=== PATIENT | male | born 1970 | race American Indian/Alaskan Native ===

== ENCOUNTER 2019-04-29 19:42 | Emergency (ER) | payer MEDICAID, OTHER ==
[2019-04-29] MEDS ORDERED: Ketorolac 60 MG/2 ML SDV IM ONE (21:08)
--- NOTE | 2019-04-29 21:10 | EDM.PDOC ---
ED HPI GENERAL MEDICAL PROBLEM - General Chief Complaint: ENT Problem Stated Complaint: TOOTHACHE Time Seen by Provider: 04/29/19 21:04 Source of Information: Reports: Patient, Family, RN Notes Reviewed History Limitations: Reports: No Limitations - History of Present Illness INITIAL COMMENTS - FREE TEXT/NARRATIVE: 49-year-old gentleman presents emergency department the complaint of dental pain , he notices that his heart has been beating fast and he was very sweaty today this is really developed over the last 24 hours he has been dealing with the poor dentition for some time. Denies any fevers Right Lower Tooth/Teeth Pain Score (Numeric/FACES): 10 - Related Data Allergies Allergy/AdvReac Type Severity Reaction Status Date / Time ciprofloxacin [From Cipro] Allergy Hives Verified 04/29/19 20:23 ciprofloxacin HCl Allergy Hives Verified 04/29/19 20:23 [From Cipro] Home Meds: Home Meds Insulin Aspart [NovoLOG] 30 units SQ TIDAC 11/17/13 [History] Insulin Detemir [Levemir] 80 units SQ BID 11/17/13 [History] Amitriptyline [Elavil] 25 mg PO BEDTIME 04/29/19 [History] Venlafaxine [Effexor XR] 300 mg PO DAILY 04/29/19 [History] cloNIDine HCl [Catapres] 0.3 mg PO BEDTIME 04/29/19 [History] Past Medical History HEENT History: Reports: Impaired Vision, Other (See Below) Other HEENT History: dental caries Cardiovascular History: Reports: Hypertension Respiratory History: Reports: Asthma Other Genitourinary History: kidney disease Musculoskeletal History: Reports: Fracture Psychiatric History: Reports: Anxiety, Depression Endocrine/Metabolic History: Reports: Diabetes, Type II, Obesity/BMI 30+ - Infectious Disease History Infectious Disease History: Reports: Chicken Pox, Shingles - Past Surgical History Musculoskeletal Surgical History: Reports: Other (See Below) Other Musculoskeletal Surgeries/Procedures:: ankle surgery Social & Family History - Tobacco Use Smoking Status *Q: Current Every Day Smoker Years of Tobacco use: 35 Packs/Tins Daily: 0.5 - Caffeine Use Caffeine Use: Reports: Coffee - Recreational Drug Use Recreational Drug Use: Yes Drug Use in Last 12 Months: No Recreational Drug Last Use: 2017 ED ROS ENT - Review of Systems Review Of Systems: See Below Constitutional: Reports: Diaphoresis. Denies: Fever, Chills HEENT: Reports: Dental Pain Respiratory: Reports: No Symptoms Cardiovascular: Reports: No Symptoms GI/Abdominal: Reports: No Symptoms ED EXAM, ENT - Physical Exam Exam: See Below Exam Limited By: No Limitations General Appearance: Alert, WD/WN, No Apparent Distress Eye Exam: Bilateral Eye: Normal Inspection Ears: Normal External Exam, Normal Canal, Hearing Grossly Normal, Normal TMs Nose: Normal Inspection Mouth/Throat: Normal Inspection, Normal Gums, Normal Lips, Normal Oropharynx, Other (Dental caries tooth #30) Head: Atraumatic, Normocephalic Neck: Normal Inspection, Supple, Non-Tender, Full Range of Motion Respiratory/Chest: No Respiratory Distress, Lungs Clear, Normal Breath Sounds, No Accessory Muscle Use, Chest Non-Tender Cardiovascular: Regular Rate, Rhythm, No Murmur GI/Abdominal: Soft, Non-Tender Course - Vital Signs Last Recorded V/S: Last Vital Signs Temp 99.6 F 04/29/19 20:28 Pulse 133 H 04/29/19 22:19 Resp 12 04/29/19 22:19 BP 114/76 04/29/19 22:19 Pulse Ox 96 04/29/19 22:19 - Orders/Labs/Meds Orders: Active Orders 24 hr Category Date Time Status EKG Documentation Completion [RC] ASDIRECTED Care 04/29/19 22:05 Active Peripheral IV Care [RC] . DIRECTED Care 04/29/19 22:15 Active Vital Signs [RC] Q1H Care 04/29/19 21:07 Active CULTURE BLOOD [BC] Urgent Lab 04/29/19 21:16 Received CULTURE BLOOD [BC] Urgent Lab 04/29/19 21:20 Received Sodium Chloride 0.9% [Saline Flush] Med 04/29/19 22:15 Active 10 ml FLUSH ASDIRECTED PRN Blood Culture x2 Reflex Set [OM.PC] Urgent Oth 04/29/19 21:07 Ordered Peripheral IV Insertion Adult [OM.PC] Urgent Oth 04/29/19 22:13 Ordered EKG 12 Lead [EK] Stat Ther 04/29/19 22:05 Ordered Medication Orders Sodium Chloride (Saline Flush) 10 ml FLUSH ASDIRECTED PRN PRN Reason: Keep Vein Open Last Admin: 04/29/19 22:20 Dose: 10 ml Labs: Laboratory Tests 04/29/19 04/29/19 04/29/19 Range/Units 21:16 21:16 21:16 WBC 15.0 H (4.5-11.0) K/uL RBC 5.56 (4.30-5.90) M/uL Hgb 16.6 H (12.0-15.0) g/dL Hct 49.5 (40.0-54.0) % MCV 89 (80-98) fL MCH 30 (27-31) pg MCHC 34 (32-36) % Plt Count 346 (150-400) K/uL Neut % (Auto) 65 (36-66) % Lymph % (Auto) 22 L (24-44) % [place] % (Auto) 8 H (2-6) % Eos % (Auto) 4 (2-4) % Baso % (Auto) 1 (0-1) % Sodium 131 L (140-148) mmol/L Potassium 5.0 (3.6-5.2) mmol/L Chloride 93 L (100-108) mmol/L Carbon Dioxide 27 (21-32) mmol/L Anion Gap 16.0 H (5.0-14.0) mmol/L BUN 23 H (7-18) mg/dL Creatinine 1.4 H (0.8-1.3) mg/dL Est Cr Clr Drug Dosing 58.86 mL/min Estimated GFR (MDRD) 54 L (>60) Glucose 560 H* (74-106) mg/dL Lactic Acid 2.3 H (0.4-2.0) mmol/L Calcium 9.7 (8.5-10.1) mg/dL Total Bilirubin 0.2 (0.2-1.0) mg/dL AST 5 L (15-37) U/L ALT 30 (12-78) U/L Alkaline Phosphatase 192 H (46-116) U/L C-Reactive Protein 0.33 H (0.0-0.3) mg/dL Total Protein 8.6 H (6.4-8.2) g/dL Albumin 3.4 (3.4-5.0) g/dL Globulin 5.2 H (2.3-3.5) g/dL Albumin/Globulin Ratio 0.7 L (1.2-2.2) Procalcitonin ng/mL Urine Color (YELLOW) Urine Appearance (CLEAR) Urine pH (5.0-8.0) Ur Specific [place] (1.008-1.030) Urine Protein (NEGATIVE) mg/dL Urine Glucose (UA) (NEGATIVE) mg/dL Urine Ketones (NEGATIVE) mg/dL Urine Occult Blood (NEGATIVE) Urine Nitrite (NEGATIVE) Urine Bilirubin (NEGATIVE) Urine Urobilinogen (0.2-1.0) EU/dL Ur Leukocyte Esterase (NEGATIVE) Urine RBC (0-5) Urine WBC (0-5) Ur Epithelial Cells Amorphous Sediment Urine Bacteria Urine Mucus Urine Opiates Screen (NEGATIVE) Ur Oxycodone Screen (NEGATIVE) Urine Methadone Screen (NEGATIVE) Ur Propoxyphene Screen (NEGATIVE) Ur Barbiturates Screen (NEGATIVE) Ur Tricyclics Screen (NEGATIVE) Ur Phencyclidine Scrn (NEGATIVE) Ur Amphetamine Screen (NEGATIVE) U Methamphetamines Scrn (NEGATIVE) Urine MDMA Screen (NEGATIVE) U Benzodiazepines Scrn (NEGATIVE) U Cocaine Metab Screen (NEGATIVE) U Marijuana (THC) Screen (NEGATIVE) 04/29/19 04/29/19 04/29/19 Range/Units 21:16 21:44 21:44 WBC (4.5-11.0) K/uL RBC (4.30-5.90) M/uL Hgb (12.0-15.0) g/dL Hct (40.0-54.0) % MCV (80-98) fL MCH (27-31) pg MCHC (32-36) % Plt Count (150-400) K/uL Neut % (Auto) (36-66) % Lymph % (Auto) (24-44) % [place] % (Auto) (2-6) % Eos % (Auto) (2-4) % Baso % (Auto) (0-1) % Sodium (140-148) mmol/L Potassium (3.6-5.2) mmol/L Chloride (100-108) mmol/L Carbon Dioxide (21-32) mmol/L Anion Gap (5.0-14.0) mmol/L BUN (7-18) mg/dL Creatinine (0.8-1.3) mg/dL Est Cr Clr Drug Dosing mL/min Estimated GFR (MDRD) (>60) Glucose (74-106) mg/dL Lactic Acid (0.4-2.0) mmol/L Calcium (8.5-10.1) mg/dL Total Bilirubin (0.2-1.0) mg/dL AST (15-37) U/L ALT (12-78) U/L Alkaline Phosphatase (46-116) U/L C-Reactive Protein (0.0-0.3) mg/dL Total Protein (6.4-8.2) g/dL Albumin (3.4-5.0) g/dL Globulin (2.3-3.5) g/dL Albumin/Globulin Ratio (1.2-2.2) Procalcitonin 0.05 ng/mL Urine Color Yellow (YELLOW) Urine Appearance Clear (CLEAR) Urine pH 5.5 (5.0-8.0) Ur Specific [place] 1.010 (1.008-1.030) Urine Protein Negative (NEGATIVE) mg/dL Urine Glucose (UA) 500 H (NEGATIVE) mg/dL Urine Ketones Negative (NEGATIVE) mg/dL Urine Occult Blood Negative (NEGATIVE) Urine Nitrite Negative (NEGATIVE) Urine Bilirubin Negative (NEGATIVE) Urine Urobilinogen 0.2 (0.2-1.0) EU/dL Ur Leukocyte Esterase Negative (NEGATIVE) Urine RBC Not seen (0-5) Urine WBC Not seen (0-5) Ur Epithelial Cells Not seen Amorphous Sediment Few Urine Bacteria Not seen Urine Mucus Not seen Urine Opiates Screen Negative (NEGATIVE) Ur Oxycodone Screen Negative (NEGATIVE) Urine Methadone Screen Negative (NEGATIVE) Ur Propoxyphene Screen Negative (NEGATIVE) Ur Barbiturates Screen Negative (NEGATIVE) Ur Tricyclics Screen Presumptive positive H (NEGATIVE) Ur Phencyclidine Scrn Negative (NEGATIVE) Ur Amphetamine Screen Negative (NEGATIVE) U Methamphetamines Scrn Negative (NEGATIVE) Urine MDMA Screen Negative (NEGATIVE) U Benzodiazepines Scrn Negative (NEGATIVE) U Cocaine Metab Screen Negative (NEGATIVE) U Marijuana (THC) Screen Negative (NEGATIVE) Meds: Medications Generic Name Dose Route Start Last Admin Trade Name Freq PRN Reason Stop Dose Admin Sodium Chloride 10 ml 04/29/19 22:15 04/29/19 22:20 Saline Flush FLUSH 10 ml ASDIRECTED PRN Administration Keep Vein Open Discontinued Medications Generic Name Dose Route Start Last Admin Trade Name Freq PRN Reason Stop Dose Admin Fentanyl 50 mcg 04/29/19 23:12 04/29/19 23:17 Sublimaze IVPUSH 04/29/19 23:13 50 mcg ONETIME ONE Administration Clindamycin Phosphate 900 mg/ 106 mls @ 200 mls/hr 04/29/19 22:15 04/29/19 22 :42 Sodium Chloride IV 04/29/19 22:46 200 mls/hr ONETIME ONE Administration Lactated Ringer's 1,000 mls @ 999 mls/hr 04/29/19 22:13 04/29/19 22:19 Ringers, Lactated IV 04/29/19 23:13 999 mls/hr BOLUS ONE Administration Insulin Glargine 80 units 04/29/19 22:21 04/29/19 22:54 Lantus Solostar SUBCUT 04/29/19 22:22 80 units NOW STA Administration Insulin Human Lispro 0 unit 04/29/19 22:20 04/29/19 22:53 Humalog SUBCUT 04/29/19 22:21 30 units ONETIME ONE Administration Ketorolac Tromethamine 60 mg 04/29/19 21:08 04/29/19 21:22 Toradol IM 04/29/19 21:09 60 mg ONETIME ONE Administration Departure - Departure Time of Disposition: 23:29 Disposition: Home, Self-Care 01 Condition: Fair Clinical Impression: Dental abscess - Discharge Information Referrals: PCP,None [Primary Care Provider] - Forms: ED Department Discharge Additional Instructions: Take full course of antibiotics, use ibuprofen for baseline pain control use Percocet for breakthrough pain, please followup with your dentist as soon as possible, please call return to the emergency department with worsening of symptoms. - My Orders Last 24 Hours: My Active Orders 04/29/19 21:07 Vital Signs [RC] Q1H Blood Culture x2 Reflex Set [OM.PC] Urgent 04/29/19 21:16 CULTURE BLOOD [BC] Urgent 04/29/19 21:20 CULTURE BLOOD [BC] Urgent 04/29/19 22:05 EKG Documentation Completion [RC] ASDIRECTED EKG 12 Lead [EK] Stat 04/29/19 22:13 Peripheral IV Insertion Adult [OM.PC] Urgent 04/29/19 22:15 Peripheral IV Care [RC] . DIRECTED Sodium Chloride 0.9% [Saline Flush] 10 ml FLUSH ASDIRECTED PRN - Assessment/Plan Last 24 Hours: My Active Orders 04/29/19 21:07 Vital Signs [RC] Q1H Blood Culture x2 Reflex Set [OM.PC] Urgent 04/29/19 21:16 CULTURE BLOOD [BC] Urgent 04/29/19 21:20 CULTURE BLOOD [BC] Urgent 04/29/19 22:05 EKG Documentation Completion [RC] ASDIRECTED EKG 12 Lead [EK] Stat 04/29/19 22:13 Peripheral IV Insertion Adult [OM.PC] Urgent 04/29/19 22:15 Peripheral IV Care [RC] . DIRECTED Sodium Chloride 0.9% [Saline Flush] 10 ml FLUSH ASDIRECTED PRN Plan: Assessment Acuity = acute Site and laterality = dental abscess tooth #30 complicated patient with known history of diabetes mellitus type 2 Etiology = dental caries Manifestations = feverish, tachycardic Location of injury = Home Lab values = WBC elevated 15.0 consistent leukocytosis, sodium low at 131 consistent hyponatremia creatinine elevated 1.4 consistent with acute renal failure stage G3 a glucose elevated 560 consistent with hyperglycemia lactic acid elevated 2.3 consistent lactic acidosis CRP slightly elevated 0.33 pro calcitonin slightly elevated 0.05, urinalysis unremarkable urine drug screen also negative Plan He had good response to 900 mg clindamycin with 1 L fluids plans discharge home clindamycin 300 mg 4 times daily x 7 days and accommodation Percocet 5/325 1 tab p.o. 3 times daily as needed total #10 he will follow-up with dentistry this week This note was dictated using [employer] voice recognition software please call with any questions on syntax or grammar.
[2019-04-29] MEDS ORDERED: Lactated Ringers 1,000 ML IV ONE (22:13)
[2019-04-29] MEDS ORDERED: Sodium Chloride 0.9% 10 ML Syringe FLUSH PRN (22:15)
[2019-04-29] MEDS ORDERED: Clindamycin Phosphate 900 MG in Sodium Chloride 0.9% 100 ML IV ONE (22:15)
[2019-04-29] MEDS ORDERED: Insulin Lispro 100 Units/ML 3 ML Vial SUBCUT ONE (22:20)
[2019-04-29] MEDS ORDERED: Insulin Glargine,Human Rec. Analog 100 Units/ML 3 ML Pen SUBCUT STA (22:21)
[2019-04-29] MEDS ORDERED: fentaNYL 100 MCG/2 ML SDV IVPUSH ONE (23:12)
[2019-04-29 23:34] VITALS: BP 122/66; PULSE 121
== END 2019-04-29 23:38 | disposition home or self-care (01) ==
LOC: JP.ED 19:42
DX: K04.7 Periapical abscess without sinus (principal); K02.9 Dental caries, unspecified; I10 Essential (primary) hypertension; J45.909 Unspecified asthma, uncomplicated; E11.9 Type 2 diabetes mellitus without complications; F17.210 Nicotine dependence, cigarettes, uncomplicated; E66.9 Obesity, unspecified; Z68.41 Body mass index [BMI] 40.0-44.9, adult; Z79.4 Long term (current) use of insulin; Z79.899 Other long term (current) drug therapy; Z88.1 Allergy status to other antibiotic agents
CPT/HCPCS: 36415; 80053; 80305; 81001; 83605; 84145; 85025; 86140; 87040; 93005; 96365; 96372; 96375; 99284; J1815; J1885; J3010; J3490; J7030; J7120

== ENCOUNTER 2019-05-03 13:54 | Emergency (ER) | payer OTHER ==
[2019-05-03 14:06] VITALS: BP 131/86; PULSE 96
[2019-05-03] MEDS ORDERED: Ketorolac 60 MG/2 ML SDV IM ONE (15:08)
[2019-05-03] MEDS ORDERED: Acetaminophen/oxyCODONE 325-5 MG Tab PO ONE (15:08)
--- NOTE | 2019-05-03 15:09 | EDM.PDOC ---
ED HPI GENERAL MEDICAL PROBLEM - General Chief Complaint: ENT Problem Stated Complaint: TOOTH PAIN BOTTOM RIGHT Time Seen by Provider: 05/03/19 15:09 Source of Information: Reports: Patient History Limitations: Reports: No Limitations - History of Present Illness INITIAL COMMENTS - FREE TEXT/NARRATIVE: pt arrived with persistent pain in the broken tooth on the rt. He was seen earler but because of the holiday he was not able to get into the dentist. Onset: Gradual Duration: Day(s): Location: Reports: Face Associated Symptoms: Reports: No Other Symptoms Right Tooth/Teeth Pain Score (Numeric/FACES): 10 - Related Data Allergies Allergy/AdvReac Type Severity Reaction Status Date / Time ciprofloxacin [From Cipro] Allergy Hives Verified 05/03/19 14:08 ciprofloxacin HCl Allergy Hives Verified 05/03/19 14:08 [From Cipro] Home Meds: Home Meds Insulin Aspart [NovoLOG] 30 units SQ TIDAC 11/17/13 [History] Insulin Detemir [Levemir] 80 units SQ BID 11/17/13 [History] Amitriptyline [Elavil] 25 mg PO BEDTIME 04/29/19 [History] Venlafaxine [Effexor XR] 300 mg PO DAILY 04/29/19 [History] cloNIDine HCl [Catapres] 0.3 mg PO BEDTIME 04/29/19 [History] Clindamycin HCl 600 mg PO QID 05/03/19 [History] Past Medical History HEENT History: Reports: Impaired Vision, Other (See Below) Other HEENT History: dental caries Cardiovascular History: Reports: Hypertension Respiratory History: Reports: Asthma Other Genitourinary History: kidney disease Musculoskeletal History: Reports: Fracture Psychiatric History: Reports: Anxiety, Depression Endocrine/Metabolic History: Reports: Diabetes, Type II, Obesity/BMI 30+ - Infectious Disease History Infectious Disease History: Reports: Chicken Pox, Shingles - Past Surgical History Musculoskeletal Surgical History: Reports: Other (See Below) Other Musculoskeletal Surgeries/Procedures:: ankle surgery Social & Family History - Tobacco Use Smoking Status *Q: Light Tobacco Smoker Years of Tobacco use: 35 Packs/Tins Daily: 0.5 - Caffeine Use Caffeine Use: Reports: Coffee Other Caffeine Use: 4-5 cups of coffee per day - Recreational Drug Use Recreational Drug Use: No ED ROS ENT - Review of Systems Review Of Systems: See Below Constitutional: Reports: No Symptoms HEENT: Reports: Dental Pain Respiratory: Reports: No Symptoms Cardiovascular: Reports: No Symptoms Endocrine: Reports: No Symptoms GI/Abdominal: Reports: No Symptoms : Reports: No Symptoms Musculoskeletal: Reports: No Symptoms Skin: Reports: No Symptoms Neurological: Reports: No Symptoms ED EXAM, ENT - Physical Exam Exam: See Below Text/Narrative:: Pt arrived with dental pain on the rt. He was seen earlier and he was not able to be seen at the dental clinic in [place] because of the holiday. He plans to go Monday and sit to be seen. Exam Limited By: No Limitations General Appearance: Alert, Moderate Distress Mouth/Throat: Other (pt has a broken tooth on the rt. He has no increased swelling. ) Head: Atraumatic Neck: Normal Inspection Respiratory/Chest: No Respiratory Distress Cardiovascular: Tachycardia, Other ( rate is 90. ) Course - Vital Signs Last Recorded V/S: Last Vital Signs Temp 35.8 C 05/03/19 14:07 Pulse 96 05/03/19 14:07 Resp 16 05/03/19 14:07 BP 131/86 05/03/19 14:07 Pulse Ox 97 05/03/19 14:07 - Orders/Labs/Meds Meds: Medications Discontinued Medications Generic Name Dose Route Start Last Admin Trade Name Sari PRN Reason Stop Dose Admin Ketorolac Tromethamine 60 mg 05/03/19 15:08 Toradol IM 05/03/19 15:09 ONETIME ONE Oxycodone/Acetaminophen 1 tab 05/03/19 15:08 05/03/19 15:16 Percocet 325-5 Mg PO 05/03/19 15:09 1 tab ONETIME ONE Administration Departure - Departure Time of Disposition: 15:10 Disposition: Home, Self-Care 01 Condition: Fair Clinical Impression: Broken tooth - Discharge Information Instructions: Tooth Injuries, [id number] Referrals: PCP,None [Primary Care Provider] - Forms: ED Department Discharge Care Plan Goals: continue clindomycin, percocet 5/325 q6h prn for pain , torodol 10mg qid for pain. Go to [facility] and sit to see a Dentist On Monday.
== END 2019-05-03 15:25 | disposition home or self-care (01) ==
LOC: JP.ED 13:54
DX: K03.81 Cracked tooth (principal); E11.9 Type 2 diabetes mellitus without complications; E66.9 Obesity, unspecified; F41.9 Anxiety disorder, unspecified; F32.9 Major depressive disorder, single episode, unspecified; I10 Essential (primary) hypertension; F17.210 Nicotine dependence, cigarettes, uncomplicated; J45.909 Unspecified asthma, uncomplicated; Z88.1 Allergy status to other antibiotic agents; Z79.4 Long term (current) use of insulin; Z79.899 Other long term (current) drug therapy; Z68.41 Body mass index [BMI] 40.0-44.9, adult
CPT/HCPCS: 96372; 99283; A9270; J1885

== ENCOUNTER 2019-05-26 23:16 | Emergency (ER) | payer OTHER ==
[2019-05-26 23:30] VITALS: BP 162/107; PULSE 108
[2019-05-26] MEDS ORDERED: Acetaminophen/HYDROcodone 325-5 MG Tab PO ONE (23:53)
[2019-05-26] MEDS ORDERED: Ketorolac 60 MG/2 ML SDV IM ONE (23:53)
--- NOTE | 2019-05-26 23:56 | EDM.PDOC ---
ED HPI GENERAL MEDICAL PROBLEM - General Chief Complaint: ENT Problem Stated Complaint: TOOTHACHE Time Seen by Provider: 05/26/19 23:54 Source of Information: Reports: Patient History Limitations: Reports: No Limitations - History of Present Illness INITIAL COMMENTS - FREE TEXT/NARRATIVE: pt has a rt lower molar that was infected in Apr. He was given antibiotics and it got better so he never went to the dentist. He is now having sig pain in the same tooth. He gets his medical care at [place]. Onset: Gradual, Other (worst today. ) Duration: Hour(s): Location: Reports: Face Associated Symptoms: Reports: No Other Symptoms Right Lower Tooth/Teeth Pain Score (Numeric/FACES): 10 - Related Data Allergies Allergy/AdvReac Type Severity Reaction Status Date / Time ciprofloxacin HCl Allergy Hives Verified 05/26/19 23:28 [From Cipro] Home Meds: Home Meds Insulin Aspart [NovoLOG] 30 units SQ TIDAC 11/17/13 [History] Insulin Detemir [Levemir] 80 units SQ BID 11/17/13 [History] Amitriptyline [Elavil] 25 mg PO BEDTIME 04/29/19 [History] Venlafaxine [Effexor XR] 300 mg PO DAILY 04/29/19 [History] cloNIDine HCl [Catapres] 0.3 mg PO BEDTIME 04/29/19 [History] Past Medical History HEENT History: Reports: Impaired Vision, Other (See Below) Other HEENT History: dental caries Cardiovascular History: Reports: Hypertension Respiratory History: Reports: Asthma Other Genitourinary History: kidney disease Musculoskeletal History: Reports: Fracture Psychiatric History: Reports: Anxiety, Depression Endocrine/Metabolic History: Reports: Diabetes, Type II, Obesity/BMI 30+ - Infectious Disease History Infectious Disease History: Reports: Chicken Pox, Shingles - Past Surgical History Musculoskeletal Surgical History: Reports: Other (See Below) Other Musculoskeletal Surgeries/Procedures:: ankle surgery Social & Family History - Tobacco Use Smoking Status *Q: Current Every Day Smoker Years of Tobacco use: 2 Packs/Tins Daily: 35 - Caffeine Use Caffeine Use: Reports: Coffee, Soda Other Caffeine Use: 4-5 cups of coffee per day - Recreational Drug Use Recreational Drug Use: No ED ROS ENT - Review of Systems Review Of Systems: See Below Constitutional: Reports: No Symptoms HEENT: Reports: Dental Pain Respiratory: Reports: No Symptoms Cardiovascular: Reports: No Symptoms Endocrine: Reports: No Symptoms GI/Abdominal: Reports: No Symptoms : Reports: No Symptoms Musculoskeletal: Reports: No Symptoms Skin: Reports: No Symptoms ED EXAM, ENT - Physical Exam Exam: See Below Text/Narrative:: pt arrived with pain in a rt lower molar. He had the same tooth flare up in Apr. He took antibiotics and it got better. It has flared again. Exam Limited By: No Limitations General Appearance: Alert, Anxious, Mild Distress Ears: Normal TMs Nose: Normal Inspection Mouth/Throat: Dental Pain, Other (pt has a painful rt lower molar. He is very tender to press on the tooth. ) Head: Atraumatic Neck: Normal Inspection Respiratory/Chest: No Respiratory Distress Course - Vital Signs Last Recorded V/S: Last Vital Signs Temp 36.2 C 05/26/19 23:28 Pulse 108 H 05/26/19 23:28 Resp 18 05/26/19 23:28 BP 162/107 H 05/26/19 23:28 Pulse Ox 99 05/26/19 23:28 - Orders/Labs/Meds Meds: Medications Discontinued Medications Generic Name Dose Route Start Last Admin Trade Name Freq PRN Reason Stop Dose Admin Hydrocodone Bitart/Acetaminophen 1 tab 05/26/19 23:53 [place] 325-5 Mg PO 05/26/19 23:54 ONETIME ONE Ketorolac Tromethamine 60 mg 05/26/19 23:53 Toradol IM 05/26/19 23:54 ONETIME ONE Departure - Departure Time of Disposition: 23:56 Disposition: Home, Self-Care 01 Condition: Fair Clinical Impression: Infected tooth - Discharge Information Referrals: PCP,None [Primary Care Provider] - Forms: ED Department Discharge Care Plan Goals: Go to [place] and sit to see the dentist, amoxicillin 500mg tid for 10 days, norco 5/325 q6h prn for pain #8, motrin 800 mg bid for pain. Sepsis Event Note - Evaluation Sepsis Screening Result: No Definite Risk - Focused Exam Vital Signs: Vital Signs Temp Pulse Resp BP Pulse Ox 05/26/19 23:28 36.2 C 108 H 18 162/107 H 99 Date Exam was Performed: 05/27/19 Time Exam was Performed: 00:01
== END 2019-05-27 00:11 | disposition home or self-care (01) ==
LOC: JP.ED 23:16
DX: K04.7 Periapical abscess without sinus (principal); E11.9 Type 2 diabetes mellitus without complications; E66.9 Obesity, unspecified; I10 Essential (primary) hypertension; J45.909 Unspecified asthma, uncomplicated; F32.9 Major depressive disorder, single episode, unspecified; F17.210 Nicotine dependence, cigarettes, uncomplicated; Z88.1 Allergy status to other antibiotic agents; Z68.42 Body mass index [BMI] 45.0-49.9, adult; Z79.899 Other long term (current) drug therapy; Z79.4 Long term (current) use of insulin
CPT/HCPCS: 96372; 99283; A9270; J1885

== ENCOUNTER 2019-05-31 18:44 | Emergency (ER) | payer MEDICAID, OTHER ==
[2019-05-31 19:03] VITALS: BP 115/77; PULSE 97
--- NOTE | 2019-05-31 19:15 | EDM.PDOC ---
ED HPI GENERAL MEDICAL PROBLEM - General Chief Complaint: ENT Problem Stated Complaint: TOOTHACHE Time Seen by Provider: 05/31/19 19:00 Source of Information: Reports: Patient, Family History Limitations: Reports: No Limitations - History of Present Illness INITIAL COMMENTS - FREE TEXT/NARRATIVE: 49-year-old male with ongoing dental pain for the past month. He has an appointment at the dentist on Monday. He was given 8 hydrocodone last week, has been taking 2 a day along with ibuprofen and is still taking his antibiotic. No significant swelling or fever. He has not seen a dentist in years. Onset: Gradual Duration: Week(s): (Several weeks) - Related Data Allergies Allergy/AdvReac Type Severity Reaction Status Date / Time ciprofloxacin HCl Allergy Hives Verified 05/31/19 18:54 [From Cipro] Home Meds: Home Meds Insulin Aspart [NovoLOG] 30 units SQ TIDAC 11/17/13 [History] Insulin Detemir [Levemir] 80 units SQ BID 11/17/13 [History] Amitriptyline [Elavil] 25 mg PO BEDTIME 04/29/19 [History] Venlafaxine [Effexor XR] 300 mg PO DAILY 04/29/19 [History] cloNIDine HCl [Catapres] 0.3 mg PO BEDTIME 04/29/19 [History] Amoxicillin 1 tab PO QID 05/31/19 [History] Hydrocodone/Acetaminophen [Hydrocodon-Acetaminophen 5-325] 1 tab PO Q4HR PRN [History] Pregabalin [Lyrica] 1 tab PO DAILY 05/31/19 [History] Past Medical History HEENT History: Reports: Impaired Vision, Other (See Below) Other HEENT History: dental caries Cardiovascular History: Reports: Hypertension Respiratory History: Reports: Asthma Other Genitourinary History: kidney disease Musculoskeletal History: Reports: Fracture Psychiatric History: Reports: Anxiety, Depression Endocrine/Metabolic History: Reports: Diabetes, Type II, Obesity/BMI 30+ - Infectious Disease History Infectious Disease History: Reports: Chicken Pox, Shingles - Past Surgical History Musculoskeletal Surgical History: Reports: Other (See Below) Other Musculoskeletal Surgeries/Procedures:: ankle surgery Social & Family History - Tobacco Use Smoking Status *Q: Current Every Day Smoker Years of Tobacco use: 15 Packs/Tins Daily: 1.5 - Caffeine Use Caffeine Use: Reports: Coffee, Soda Other Caffeine Use: 4-5 cups of coffee per day ED ROS ENT - Review of Systems Review Of Systems: See Below Constitutional: Denies: Fever, Chills HEENT: Reports: Other (Persistent significant right mandibular dental pain) Respiratory: Denies: Shortness of Breath GI/Abdominal: Denies: Nausea, Vomiting ED EXAM, ENT - Physical Exam Exam: See Below Exam Limited By: No Limitations General Appearance: Alert, No Apparent Distress, Other (Looks uncomfortable but not distressed) Mouth/Throat: Other (Scattered advanced dental decay, the second molar on the right mandible is tender to percussion) Respiratory/Chest: No Respiratory Distress Course - Vital Signs Last Recorded V/S: Last Vital Signs Temp 96.8 F 05/31/19 19:02 Pulse 97 05/31/19 19:02 Resp 14 05/31/19 19:02 BP 115/77 05/31/19 19:02 Pulse Ox 95 05/31/19 19:02 - Re-Assessments/Exams Free Text/Narrative Re-Assessment/Exam: 05/31/19 19:13 [facility] search shows this patient is likely taking the medications as prescribed, he has only had 3 small prescriptions over the past month. 10 additional hydrocodone were given to take along with ibuprofen through the weekend until he can get to his appointment on Monday. Departure - Departure Time of Disposition: 19:43 Disposition: Home, Self-Care 01 Clinical Impression: Pain, dental - Discharge Information Instructions: Dental Caries, Pediatric Referrals: PCP,None [Primary Care Provider] - Forms: ED Department Discharge Care Plan Goals: Continue antibiotic, keep your appointment on Monday as scheduled and continue with ibuprofen for pain control. Add stronger pain medication as prescribed if needed. Sepsis Event Note - Evaluation Sepsis Screening Result: No Definite Risk - Focused Exam Vital Signs: Vital Signs Temp Pulse Resp BP Pulse Ox 05/31/19 19:02 96.8 F 97 14 115/77 95 Date Exam was Performed: 05/31/19 Time Exam was Performed: 20:39
== END 2019-05-31 19:46 | disposition home or self-care (01) ==
LOC: JP.ED 18:44
DX: K02.9 Dental caries, unspecified (principal); I10 Essential (primary) hypertension; E11.9 Type 2 diabetes mellitus without complications; J45.909 Unspecified asthma, uncomplicated; F41.9 Anxiety disorder, unspecified; F32.9 Major depressive disorder, single episode, unspecified; E66.9 Obesity, unspecified; Z68.42 Body mass index [BMI] 45.0-49.9, adult; F17.210 Nicotine dependence, cigarettes, uncomplicated; Z79.4 Long term (current) use of insulin; Z79.899 Other long term (current) drug therapy; Z88.1 Allergy status to other antibiotic agents
CPT/HCPCS: 99282; 99283

== ENCOUNTER 2019-06-24 17:12 | Emergency (ER) | payer MEDICAID, OTHER ==
[2019-06-24 18:24] VITALS: BP 141/102; PULSE 104
--- NOTE | 2019-06-24 18:51 | EDM.PDOC ---
ED HPI GENERAL MEDICAL PROBLEM - General Chief Complaint: ENT Problem Stated Complaint: CRACKED TOOTH Time Seen by Provider: 06/24/19 18:37 Source of Information: Reports: Patient, Family, Old Records, RN Notes Reviewed History Limitations: Reports: No Limitations - History of Present Illness INITIAL COMMENTS - FREE TEXT/NARRATIVE: 49-year-old gentleman presents emergency department a complaint of dental pain, he has been in the emergency department multiple times for the same complaint he states he is going to the dentist on but this is similar to prior he has not had any fevers does complain of some facial swelling - Related Data Allergies Allergy/AdvReac Type Severity Reaction Status Date / Time ciprofloxacin HCl Allergy Hives Verified 06/24/19 18:23 [From Cipro] Home Meds: Home Meds Insulin Aspart [NovoLOG] 30 units SQ TIDAC 11/17/13 [History] Insulin Detemir [Levemir] 80 units SQ BID 11/17/13 [History] Amitriptyline [Elavil] 25 mg PO BEDTIME 04/29/19 [History] Venlafaxine [Effexor XR] 300 mg PO DAILY 04/29/19 [History] cloNIDine HCl [Catapres] 0.3 mg PO BEDTIME 04/29/19 [History] Pregabalin [Lyrica] 1 tab PO DAILY 05/31/19 [History] Past Medical History HEENT History: Reports: Impaired Vision, Other (See Below) Other HEENT History: dental caries Cardiovascular History: Reports: Hypertension Respiratory History: Reports: Asthma Other Genitourinary History: kidney disease Musculoskeletal History: Reports: Fracture Psychiatric History: Reports: Anxiety, Depression Endocrine/Metabolic History: Reports: Diabetes, Type II, Obesity/BMI 30+ - Infectious Disease History Infectious Disease History: Reports: Chicken Pox, Shingles - Past Surgical History Musculoskeletal Surgical History: Reports: Other (See Below) Other Musculoskeletal Surgeries/Procedures:: ankle surgery Social & Family History - Tobacco Use Smoking Status *Q: Current Every Day Smoker Years of Tobacco use: 35 Packs/Tins Daily: 0.5 - Caffeine Use Caffeine Use: Reports: Coffee, Soda, Tea Other Caffeine Use: 4-5 cups of coffee per day - Recreational Drug Use Recreational Drug Use: No ED ROS ENT - Review of Systems Review Of Systems: See Below Constitutional: Reports: No Symptoms HEENT: Reports: Dental Pain, Other (Facial swelling) ED EXAM, ENT - Physical Exam Exam: See Below Exam Limited By: No Limitations General Appearance: Alert, WD/WN, No Apparent Distress Mouth/Throat: Normal Inspection, Normal Gums, Normal Lips, Normal Oropharynx, Dental Pain, Dental Tenderness Course - Vital Signs Last Recorded V/S: Last Vital Signs Temp 98.1 F 06/24/19 18:25 Pulse 104 H 06/24/19 18:25 Resp 16 06/24/19 18:25 BP 141/102 H 06/24/19 18:25 Pulse Ox 97 06/24/19 18:25 Departure - Departure Time of Disposition: 18:51 Disposition: Home, Self-Care 01 Condition: Poor Clinical Impression: Pain, dental - Discharge Information Referrals: PCP,None [Primary Care Provider] - Additional Instructions: Take full course of antibiotics, use hydrocodone as needed for pain control, please follow-up with dentistry as soon as possible Sepsis Event Note - Evaluation Sepsis Screening Result: No Definite Risk - Focused Exam Vital Signs: Vital Signs Temp Pulse Resp BP Pulse Ox 06/24/19 18:25 98.1 F 104 H 16 141/102 H 97 06/24/19 18:22 98.1 F 104 H 16 141/102 H 97 Date Exam was Performed: 06/24/19 Time Exam was Performed: 18:48 - Assessment/Plan Plan: Assessment Acuity = acute Site and laterality = dental pain tooth #30 Etiology = poor dentition Manifestations = none Location of injury = Home Lab values = none Plan Elect to treat empirically amoxicillin 500 mg p.o. 3 times daily x10 days, prescription written for hydrocodone 5/325 1 tab p.o. 3 times daily PRN total # 12 he states he has a dental appointment on of this week. This note was dictated using [employer] voice recognition software please call with any questions on syntax or grammar.
== END 2019-06-24 18:56 | disposition home or self-care (01) ==
LOC: JP.ED 17:12
DX: K08.89 Other specified disorders of teeth and supporting structures (principal); I10 Essential (primary) hypertension; E11.9 Type 2 diabetes mellitus without complications; F32.9 Major depressive disorder, single episode, unspecified; F41.9 Anxiety disorder, unspecified; E66.9 Obesity, unspecified; Z68.41 Body mass index [BMI] 40.0-44.9, adult; F17.210 Nicotine dependence, cigarettes, uncomplicated; Z88.1 Allergy status to other antibiotic agents; Z79.4 Long term (current) use of insulin; Z79.899 Other long term (current) drug therapy
CPT/HCPCS: 99282

== ENCOUNTER 2019-06-27 17:40 | Observation (INO) | payer MEDICAID, OTHER ==
[2019-06-27] MEDS ORDERED: Ondansetron 4 MG/2 ML SDV IVPUSH ONE (18:21)
[2019-06-27] MEDS ORDERED: HYDROmorphone 0.5 MG/0.5 ML Syringe IVPUSH ONE ×2 (18:22→20:13)
--- NOTE | 2019-06-27 18:26 | EDM.PDOC ---
ED HPI GENERAL MEDICAL PROBLEM - General Chief Complaint: Gastrointestinal Problem Stated Complaint: VOMITING, BELLY PAIN Time Seen by Provider: 06/27/19 18:23 Source of Information: Reports: Patient History Limitations: Reports: No Limitations - History of Present Illness INITIAL COMMENTS - FREE TEXT/NARRATIVE: pt arrived wih dry heaves and feeling sick all over. He has not had diarrhea. He has not checked his sugar. Onset: Other ( started yesterday. ) Duration: Hour(s): Location: Reports: Abdomen, Generalized Associated Symptoms: Reports: Diaphoresis, Loss of Appetite, Nausea/Vomiting, Weakness Upper Abdominal Pain Score (Numeric/FACES): 10 - Related Data Allergies Allergy/AdvReac Type Severity Reaction Status Date / Time ciprofloxacin HCl Allergy Hives Verified 06/27/19 17:58 [From Cipro] Home Meds: Home Meds Insulin Aspart [NovoLOG] 30 units SQ TIDAC 11/17/13 [History] Insulin Detemir [Levemir] 80 units SQ BID 11/17/13 [History] Amitriptyline [Elavil] 25 mg PO BEDTIME 04/29/19 [History] Venlafaxine [Effexor XR] 300 mg PO DAILY 04/29/19 [History] cloNIDine HCl [Catapres] 0.3 mg PO BEDTIME 04/29/19 [History] Pregabalin [Lyrica] 150 mg PO DAILY 05/31/19 [History] Amoxicillin 500 mg PO TID 06/27/19 [History] Acetaminophen/oxyCODONE [Percocet 325-5 MG] 1 tab PO Q4H PRN #8 tablet 06/28/19 [Rx] Pantoprazole Sodium [Protonix] 40 mg PO BID #60 tablet. 06/28/19 [Rx] Past Medical History HEENT History: Reports: Impaired Vision, Other (See Below) Other HEENT History: dental caries Cardiovascular History: Reports: Hypertension Respiratory History: Reports: Asthma Other Genitourinary History: kidney disease Musculoskeletal History: Reports: Fracture Psychiatric History: Reports: Anxiety, Depression Endocrine/Metabolic History: Reports: Diabetes, Type I, Obesity/BMI 30+ - Infectious Disease History Infectious Disease History: Reports: Chicken Pox, Shingles - Past Surgical History Musculoskeletal Surgical History: Reports: Other (See Below) Other Musculoskeletal Surgeries/Procedures:: ankle surgery Social & Family History - Tobacco Use Smoking Status *Q: Light Tobacco Smoker Years of Tobacco use: 35 Packs/Tins Daily: 0.5 - Caffeine Use Caffeine Use: Reports: Coffee, Soda Other Caffeine Use: 3 cups of coffee per day - Recreational Drug Use Recreational Drug Use: No ED ROS GENERAL - Review of Systems Review Of Systems: See Below Constitutional: Reports: Chills, Malaise, Weakness, Decreased Appetite HEENT: Reports: No Symptoms Respiratory: Reports: No Symptoms Cardiovascular: Reports: No Symptoms Endocrine: Reports: No Symptoms GI/Abdominal: Reports: Abdominal Pain, Nausea, Vomiting, Other (pt is dry heaving. ) : Reports: No Symptoms Musculoskeletal: Reports: No Symptoms Skin: Reports: No Symptoms ED EXAM, GI/ABD - Physical Exam Exam: See Below Text/Narrative:: pt is feeling shakey and is chjilling. He has been dry heaving alot of the day. He has a painful tooth. He did go to the dental clinic in [place] and He waited until noon and did not get seen. He is concerned about a rash on his lower legs that has been there for about 1 week. Exam Limited By: No Limitations General Appearance: Alert, Anxious, Moderate Distress Ears: Normal TMs Nose: Normal Inspection Throat/Mouth: Other (pt has a carrious tooth on the rt upper which is painful. ) Head: Atraumatic Neck: Normal Inspection Respiratory/Chest: No Respiratory Distress Cardiovascular: Regular Rate, Rhythm, Tachycardia GI/Abdominal Exam: Soft, Non-Tender (Male) Exam: Deferred Rectal (Males) Exam: Deferred Back Exam: Normal Inspection Extremities: Normal Inspection, Other (pt has a rash on both legs which have been there for several weeks. ) Neurological: Alert, Oriented, Normal Cognition Psychiatric: Normal Affect Course - Vital Signs Last Recorded V/S: Last Vital Signs Temp 36.8 C 06/28/19 07:35 Pulse 114 H 06/28/19 07:35 Resp 16 06/28/19 07:35 BP 126/68 06/28/19 07:35 Pulse Ox 96 06/28/19 07:35 - Orders/Labs/Meds Labs: Laboratory Tests 06/27/19 06/27/19 06/27/19 Range/Units 18:36 18:36 18:51 WBC 14.3 H (4.5-11.0) K/uL RBC 5.26 (4.30-5.90) M/uL Hgb 15.9 H (12.0-15.0) g/dL Hct 48.2 (40.0-54.0) % MCV 92 (80-98) fL MCH 30 (27-31) pg MCHC 33 (32-36) % Plt Count 286 (150-400) K/uL Neut % (Auto) 66 (36-66) % Lymph % (Auto) 24 (24-44) % [place] % (Auto) 8 H (2-6) % Eos % (Auto) 2 (2-4) % Baso % (Auto) 0 (0-1) % VBG pH 7.417 (7.350-7.450) Sodium 132 L (140-148) mmol/L Potassium 4.8 (3.6-5.2) mmol/L Chloride 95 L (100-108) mmol/L Carbon Dioxide 27 (21-32) mmol/L Anion Gap 14.8 H (5.0-14.0) mmol/L BUN 20 H (7-18) mg/dL Creatinine 1.1 (0.8-1.3) mg/dL Est Cr Clr Drug Dosing 74.92 mL/min Estimated GFR (MDRD) > 60 (>60) Glucose 488 H* (74-106) mg/dL Lactic Acid (0.4-2.0) mmol/L Calcium 8.8 (8.5-10.1) mg/dL Total Bilirubin 0.3 (0.2-1.0) mg/dL AST 13 L D (15-37) U/L ALT 29 (12-78) U/L Alkaline Phosphatase 131 H (46-116) U/L Troponin I (0.000-0.056) ng/mL C-Reactive Protein (0.0-0.3) mg/dL Total Protein 7.7 (6.4-8.2) g/dL Albumin 3.1 L (3.4-5.0) g/dL Globulin 4.6 H (2.3-3.5) g/dL Albumin/Globulin Ratio 0.7 L (1.2-2.2) Amylase (25-115) U/L Lipase (73-393) U/L Urine Color (YELLOW) Urine Appearance (CLEAR) Urine pH (5.0-8.0) Ur Specific [place] (1.008-1.030) Urine Protein (NEGATIVE) mg/dL Urine Glucose (UA) (NEGATIVE) mg/dL Urine Ketones (NEGATIVE) mg/dL Urine Occult Blood (NEGATIVE) Urine Nitrite (NEGATIVE) Urine Bilirubin (NEGATIVE) Urine Urobilinogen (0.2-1.0) EU/dL Ur Leukocyte Esterase (NEGATIVE) Urine RBC (0-5) Urine WBC (0-5) Ur Epithelial Cells Amorphous Sediment Urine Bacteria Urine Mucus Urine Opiates Screen (NEGATIVE) Ur Oxycodone Screen (NEGATIVE) Urine Methadone Screen (NEGATIVE) Ur Propoxyphene Screen (NEGATIVE) Ur Barbiturates Screen (NEGATIVE) Ur Tricyclics Screen (NEGATIVE) Ur Phencyclidine Scrn (NEGATIVE) Ur Amphetamine Screen (NEGATIVE) U Methamphetamines Scrn (NEGATIVE) Urine MDMA Screen (NEGATIVE) U Benzodiazepines Scrn (NEGATIVE) U Cocaine Metab Screen (NEGATIVE) U Marijuana (THC) Screen (NEGATIVE) 06/27/19 06/27/19 06/27/19 Range/Units 18:56 18:56 19:26 WBC (4.5-11.0) K/uL RBC (4.30-5.90) M/uL Hgb (12.0-15.0) g/dL Hct (40.0-54.0) % MCV (80-98) fL MCH (27-31) pg MCHC (32-36) % Plt Count (150-400) K/uL Neut % (Auto) (36-66) % Lymph % (Auto) (24-44) % [place] % (Auto) (2-6) % Eos % (Auto) (2-4) % Baso % (Auto) (0-1) % VBG pH (7.350-7.450) Sodium (140-148) mmol/L Potassium (3.6-5.2) mmol/L Chloride (100-108) mmol/L Carbon Dioxide (21-32) mmol/L Anion Gap (5.0-14.0) mmol/L BUN (7-18) mg/dL Creatinine (0.8-1.3) mg/dL Est Cr Clr Drug Dosing mL/min Estimated GFR (MDRD) (>60) Glucose (74-106) mg/dL Lactic Acid 2.3 H (0.4-2.0) mmol/L Calcium (8.5-10.1) mg/dL Total Bilirubin (0.2-1.0) mg/dL AST (15-37) U/L ALT (12-78) U/L Alkaline Phosphatase (46-116) U/L Troponin I (0.000-0.056) ng/mL C-Reactive Protein (0.0-0.3) mg/dL Total Protein (6.4-8.2) g/dL Albumin (3.4-5.0) g/dL Globulin (2.3-3.5) g/dL Albumin/Globulin Ratio (1.2-2.2) Amylase (25-115) U/L Lipase (73-393) U/L Urine Color Yellow (YELLOW) Urine Appearance Clear (CLEAR) Urine pH 5.5 (5.0-8.0) Ur Specific [place] 1.010 (1.008-1.030) Urine Protein Negative (NEGATIVE) mg/dL Urine Glucose (UA) 500 H (NEGATIVE) mg/dL Urine Ketones Trace H (NEGATIVE) mg/dL Urine Occult Blood Negative (NEGATIVE) Urine Nitrite Negative (NEGATIVE) Urine Bilirubin Negative (NEGATIVE) Urine Urobilinogen 0.2 (0.2-1.0) EU/dL Ur Leukocyte Esterase Negative (NEGATIVE) Urine RBC Not seen (0-5) Urine WBC Not seen (0-5) Ur Epithelial Cells Rare Amorphous Sediment Not seen Urine Bacteria Not seen Urine Mucus Not seen Urine Opiates Screen Negative (NEGATIVE) Ur Oxycodone Screen Negative (NEGATIVE) Urine Methadone Screen Negative (NEGATIVE) Ur Propoxyphene Screen Negative (NEGATIVE) Ur Barbiturates Screen Negative (NEGATIVE) Ur Tricyclics Screen Presumptive positive H (NEGATIVE) Ur Phencyclidine Scrn Negative (NEGATIVE) Ur Amphetamine Screen Negative (NEGATIVE) U Methamphetamines Scrn Negative (NEGATIVE) Urine MDMA Screen Negative (NEGATIVE) U Benzodiazepines Scrn Negative (NEGATIVE) U Cocaine Metab Screen Negative (NEGATIVE) U Marijuana (THC) Screen Negative (NEGATIVE) 06/27/19 06/27/19 06/27/19 Range/Units 19:34 19:56 20:07 WBC (4.5-11.0) K/uL RBC (4.30-5.90) M/uL Hgb (12.0-15.0) g/dL Hct (40.0-54.0) % MCV (80-98) fL MCH (27-31) pg MCHC (32-36) % Plt Count (150-400) K/uL Neut % (Auto) (36-66) % Lymph % (Auto) (24-44) % [place] % (Auto) (2-6) % Eos % (Auto) (2-4) % Baso % (Auto) (0-1) % VBG pH (7.350-7.450) Sodium (140-148) mmol/L Potassium (3.6-5.2) mmol/L Chloride (100-108) mmol/L Carbon Dioxide (21-32) mmol/L Anion Gap (5.0-14.0) mmol/L BUN (7-18) mg/dL Creatinine (0.8-1.3) mg/dL Est Cr Clr Drug Dosing mL/min Estimated GFR (MDRD) (>60) Glucose (74-106) mg/dL Lactic Acid (0.4-2.0) mmol/L Calcium (8.5-10.1) mg/dL Total Bilirubin (0.2-1.0) mg/dL AST (15-37) U/L ALT (12-78) U/L Alkaline Phosphatase (46-116) U/L Troponin I < 0.017 < 0.017 (0.000-0.056) ng/mL C-Reactive Protein 1.10 H (0.0-0.3) mg/dL Total Protein (6.4-8.2) g/dL Albumin (3.4-5.0) g/dL Globulin (2.3-3.5) g/dL Albumin/Globulin Ratio (1.2-2.2) Amylase (25-115) U/L Lipase (73-393) U/L Urine Color (YELLOW) Urine Appearance (CLEAR) Urine pH (5.0-8.0) Ur Specific [place] (1.008-1.030) Urine Protein (NEGATIVE) mg/dL Urine Glucose (UA) (NEGATIVE) mg/dL Urine Ketones (NEGATIVE) mg/dL Urine Occult Blood (NEGATIVE) Urine Nitrite (NEGATIVE) Urine Bilirubin (NEGATIVE) Urine Urobilinogen (0.2-1.0) EU/dL Ur Leukocyte Esterase (NEGATIVE) Urine RBC (0-5) Urine WBC (0-5) Ur Epithelial Cells Amorphous Sediment Urine Bacteria Urine Mucus Urine Opiates Screen (NEGATIVE) Ur Oxycodone Screen (NEGATIVE) Urine Methadone Screen (NEGATIVE) Ur Propoxyphene Screen (NEGATIVE) Ur Barbiturates Screen (NEGATIVE) Ur Tricyclics Screen (NEGATIVE) Ur Phencyclidine Scrn (NEGATIVE) Ur Amphetamine Screen (NEGATIVE) U Methamphetamines Scrn (NEGATIVE) Urine MDMA Screen (NEGATIVE) U Benzodiazepines Scrn (NEGATIVE) U Cocaine Metab Screen (NEGATIVE) U Marijuana (THC) Screen (NEGATIVE) 06/27/19 06/27/19 Range/Units 20:10 20:11 WBC (4.5-11.0) K/uL RBC (4.30-5.90) M/uL Hgb (12.0-15.0) g/dL Hct (40.0-54.0) % MCV (80-98) fL MCH (27-31) pg MCHC (32-36) % Plt Count (150-400) K/uL Neut % (Auto) (36-66) % Lymph % (Auto) (24-44) % [place] % (Auto) (2-6) % Eos % (Auto) (2-4) % Baso % (Auto) (0-1) % VBG pH (7.350-7.450) Sodium (140-148) mmol/L Potassium (3.6-5.2) mmol/L Chloride (100-108) mmol/L Carbon Dioxide (21-32) mmol/L Anion Gap (5.0-14.0) mmol/L BUN (7-18) mg/dL Creatinine (0.8-1.3) mg/dL Est Cr Clr Drug Dosing mL/min Estimated GFR (MDRD) (>60) Glucose (74-106) mg/dL Lactic Acid (0.4-2.0) mmol/L Calcium (8.5-10.1) mg/dL Total Bilirubin (0.2-1.0) mg/dL AST (15-37) U/L ALT (12-78) U/L Alkaline Phosphatase (46-116) U/L Troponin I (0.000-0.056) ng/mL C-Reactive Protein (0.0-0.3) mg/dL Total Protein (6.4-8.2) g/dL Albumin (3.4-5.0) g/dL Globulin (2.3-3.5) g/dL Albumin/Globulin Ratio (1.2-2.2) Amylase 64 (25-115) U/L Lipase 210 (73-393) U/L Urine Color (YELLOW) Urine Appearance (CLEAR) Urine pH (5.0-8.0) Ur Specific [place] (1.008-1.030) Urine Protein (NEGATIVE) mg/dL Urine Glucose (UA) (NEGATIVE) mg/dL Urine Ketones (NEGATIVE) mg/dL Urine Occult Blood (NEGATIVE) Urine Nitrite (NEGATIVE) Urine Bilirubin (NEGATIVE) Urine Urobilinogen (0.2-1.0) EU/dL Ur Leukocyte Esterase (NEGATIVE) Urine RBC (0-5) Urine WBC (0-5) Ur Epithelial Cells Amorphous Sediment Urine Bacteria Urine Mucus Urine Opiates Screen (NEGATIVE) Ur Oxycodone Screen (NEGATIVE) Urine Methadone Screen (NEGATIVE) Ur Propoxyphene Screen (NEGATIVE) Ur Barbiturates Screen (NEGATIVE) Ur Tricyclics Screen (NEGATIVE) Ur Phencyclidine Scrn (NEGATIVE) Ur Amphetamine Screen (NEGATIVE) U Methamphetamines Scrn (NEGATIVE) Urine MDMA Screen (NEGATIVE) U Benzodiazepines Scrn (NEGATIVE) U Cocaine Metab Screen (NEGATIVE) U Marijuana (THC) Screen (NEGATIVE) Meds: Medications Discontinued Medications Generic Name Dose Route Start Last Admin Trade Name Freq PRN Reason Stop Dose Admin Acetaminophen 650 mg 06/27/19 22:35 Tylenol PO Q4H PRN Pain (Mild 1-3)/fever Albuterol 2.5 mg 06/27/19 22:35 Proventil Neb Soln NEB Q4H PRN Shortness Of Breath/wheezing Amitriptyline HCl 25 mg 06/27/19 22:35 06/27/19 23:29 Elavil PO 25 mg BEDTIME CRIS Administration Amoxicillin 500 mg 06/27/19 22:35 06/28/19 08:31 Amoxil PO 07/04/19 14:01 500 mg TID CRIS Administration Clonidine HCl 0.3 mg 06/27/19 22:35 06/27/19 23:16 Catapres PO 0.3 mg BEDTIME CRIS Administration Docusate Sodium 100 mg 06/27/19 22:35 Colace PO BID PRN Constipation Enoxaparin Sodium 40 mg 06/28/19 09:00 06/28/19 08:31 Lovenox SUBCUT 40 mg DAILY CRIS Administration Hydromorphone HCl 0.5 mg 06/27/19 18:22 06/27/19 18:55 Dilaudid IVPUSH 06/27/19 18:23 0.5 mg ONETIME ONE Administration Hydromorphone HCl 0.5 mg 06/27/19 20:13 06/27/19 20:25 Dilaudid IVPUSH 06/27/19 20:14 0.5 mg ONETIME ONE Administration Hydromorphone HCl 1 mg 06/27/19 21:47 06/27/19 22:07 Dilaudid IVPUSH 06/27/19 21:48 1 mg ONETIME ONE Administration Sodium Chloride 1,000 mls @ 999 mls/hr 06/27/19 18:30 06/27/19 18:56 Normal Saline IV 999 mls/hr ASDIRECTED CRIS Administration Sodium Chloride 1,000 mls @ 999 mls/hr 06/27/19 19:45 06/27/19 19:40 Normal Saline IV 999 mls/hr ASDIRECTED CRIS Administration Sodium Chloride 1,000 mls @ 999 mls/hr 06/27/19 19:45 06/27/19 21:27 Normal Saline IV 999 mls/hr ASDIRECTED CRIS Administration Sodium Chloride 80 mls @ 3 mls/sec 06/27/19 20:30 06/27/19 20:41 Normal Saline IV 3 mls/sec ASDIRECTED CRIS Administration Sodium Chloride 1,000 mls @ 500 mls/hr 06/27/19 21:00 Normal Saline IV ASDIRECTED CRIS Sodium Chloride 1,000 mls @ 125 mls/hr 06/27/19 22:00 06/28/19 06:12 Normal Saline IV 125 mls/hr ASDIRECTED CRIS Administration Insulin Glargine 80 units 06/27/19 23:00 06/28/19 08:30 Lantus Solostar SUBCUT 80 units BID CRIS Administration Insulin Human Lispro 0 unit 06/28/19 07:00 06/28/19 11:18 Humalog SUBCUT Not Given [facility] Protocol Insulin Human Lispro 30 unit 06/28/19 07:30 06/28/19 11:18 Humalog SUBCUT Not Given TIDAC CRIS Insulin Human Regular 10 unit 06/27/19 19:00 06/27/19 19:09 Humulin R SUBCUT 06/27/19 19:01 10 units ONETIME ONE Administration Insulin Human Regular 10 unit 06/27/19 20:53 06/27/19 21:22 Humulin R SUBCUT 06/27/19 20:54 10 units ONETIME ONE Administration Iopamidol 150 ml 06/27/19 20:30 06/27/19 20:41 Isovue-300 (61%) IV 150 ml . DIRECTED CRIS Administration Lorazepam 1 mg 06/27/19 22:35 Ativan IV Q6H PRN Nausea/Vomiting Nicotine Polacrilex 2 mg 06/27/19 23:10 Nicorelief CHEW Q2H PRN Agitation Ondansetron HCl 4 mg 06/27/19 18:21 06/27/19 18:56 Zofran IVPUSH 06/27/19 18:22 4 mg ONETIME ONE Administration Ondansetron HCl 4 mg 06/27/19 22:35 06/27/19 23:15 Zofran Odt PO 4 mg Q6H PRN Administration Nausea able to take PO Oxycodone/Acetaminophen 2 tab 06/27/19 22:35 06/28/19 07:30 Percocet 325-5 Mg PO 2 tab Q4H PRN Administration Pain (moderate 4-6) Pantoprazole Sodium 40 mg 06/27/19 22:00 06/28/19 09:57 Protonix Iv IVPUSH 40 mg Q12H CRIS Administration Pregabalin 150 mg 06/27/19 22:35 06/27/19 23:29 Lyrica PO 150 mg BEDTIME CRIS Administration Sodium Chloride 10 ml 06/27/19 20:30 06/27/19 20:41 Saline Flush FLUSH 10 ml ASDIRECTED PRN Administration Keep Vein Open Venlafaxine HCl 300 mg 06/28/19 09:00 06/28/19 08:31 Effexor Xr PO 300 mg DAILY CRIS Administration Zolpidem Tartrate 5 mg 06/27/19 22:35 06/27/19 23:16 Ambien PO 5 mg BEDTIME PRN Administration Sleep - Re-Assessments/Exams Free Text/Narrative Re-Assessment/Exam: 06/27/19 20:56 pt was found to have a mild elevation in the wbc,He has a normal lipase and amylase. He continues to have abdomanal pain. He is having a cat scan of the abdoman and pelvis with contrast. He was given 2 liters of normal saline. His bs was 488. He was given 10 inits of regular insulin and he still remained at 456. He has been tach at 130 sinus tach. His lactic acid was mildly elevated. will get a second in 2 hours. . 06/27/19 21:00 Departure - Departure Time of Disposition: 07:35 Disposition: Admitted As Inpatient 68 Condition: Fair Clinical Impression: Dehydration, Hyperglycemia - Discharge Information Sepsis Event Note - Evaluation Sepsis Screening Result: No Definite Risk - Focused Exam Date Exam was Performed: 07/01/19 Time Exam was Performed: 08:13
[2019-06-27] MEDS ORDERED: Sodium Chloride 0.9% 1,000 ML IV SCH ×4 (18:30→21:00)
[2019-06-27] MEDS ORDERED: Insulin Regular, Human 100 Units/ML 3 ML Vial SUBCUT ONE ×2 (19:00→20:53)
[2019-06-27] MEDS ORDERED: Sodium Chloride 0.9% 80 ML IV SCH (20:30)
[2019-06-27] MEDS ORDERED: Iopamidol 612 MG/ML 150 ML Bottle IV SCH (20:30)
[2019-06-27] MEDS ORDERED: Sodium Chloride 0.9% 10 ML Syringe FLUSH PRN (20:30)
--- NOTE | 2019-06-27 21:26 | CRLCT ---
INDICATION: upper abdominal pain CT ABDOMEN AND PELVIS WITH CONTRAST TECHNIQUE: Multidetector CT imaging was performed through the abdomen and pelvis following intravenous contrast administration using 150 mL Isovue 300. Coronal and sagittal reconstructions were generated. COMPARISON: None. FINDINGS: Lower chest: Mild basilar lung atelectasis, greatest on the left. Liver: Within normal limits. Gallbladder and bile ducts: No gallbladder wall thickening or calcified gallstones. No biliary dilation identified. Pancreas: Unremarkable. Spleen: Normal. Adrenals: No nodules or masses. Kidneys, ureters, and urinary bladder: No renal masses or hydronephrosis. No bladder mass or definite wall thickening. Gastrointestinal tract: Wall thickening involving the distal gastric antrum, suggesting localize gastritis here. Normal caliber bowel without wall thickening or obstruction. The appendix is normal. Vascular structures: Normal for age. Peritoneum: No free air, abscess, or significant free fluid. Lymph nodes: Nonspecific upper normal-sized lymph nodes adjacent to the distal esophagus. No pathologically enlarged nodes identified in the abdomen or pelvis. Reproductive organs: Upper normal prostate size. Bones: Mild spinal degenerative changes. IMPRESSION: 1. Wall thickening of the gastric antrum, suggesting gastritis. 2. Nonacute additional findings as detailed above. TWILA GUERRERO MD [employer] Dictated by Douglas Guerrero MD @ 06/27/2019 9:19:09 PM Dictated by: Douglas Guerrero MD @ 06/27/2019 21:24:07 (Electronically Signed)
[2019-06-27] MEDS ORDERED: HYDROmorphone 1 MG/ML Syringe IVPUSH ONE (21:47)
--- NOTE | 2019-06-27 22:13 | CRLCR ---
INDICATION: Elevated white blood cell count TECHNIQUE: Chest radiograph 1 view COMPARISON: None FINDINGS: Moderate degradation of image quality noted due to body habitus. Mediastinum: The mediastinum is normal in appearance. The heart silhouette is normal in size and morphology. Lung: Both lungs are unremarkable in appearance. No sign of pleural effusion seen. No pneumothorax is identified. Bone and Soft tissue: Unremarkable for age. IMPRESSION: 1. No acute cardiopulmonary disease is seen. Dictated by Yaakov Mccarthy MD @ 06/27/2019 10:12:31 PM Dictated by: Yaakov Mccarthy MD @ 06/27/2019 22:12:35 (Electronically Signed)
--- NOTE | 2019-06-27 22:23 | PCM.HP.2 ---
H&P History of Present Illness - General Date of Service: 06/27/19 Admit Problem/Dx: Admission Diagnosis/Problem Admission Diagnosis/Problem Nausea and vomiting Source of Information: Patient, Family (CHRISTINA Turner), Provider, RN History Limitations: Reports: No Limitations - History of Present Illness Initial Comments - Free Text/Narative: chief complaint: nausea and vomiting for 2 days. now with dry heaves. came to ER for evaluation. Onset of Symptoms: Reports: Gradual Symptom Onset Date: 06/26/19 Duration of Symptoms: Reports: Day(s):, Getting Worse Location: Reports: Abdomen, Generalized Quality: Reports: Sharp Improves with: Reports: None Worsens with: Reports: None Associated Symptoms: Reports: Fever/Chills, Loss of Appetite (reports hasnt ate food in the past 2 days due to nausea and vomiting), Nausea/Vomiting Upper Abdominal Pain Score (Numeric/FACES): 10 - Related Data Allergies/Adverse Reactions: Allergies Allergy/AdvReac Type Severity Reaction Status Date / Time ciprofloxacin HCl Allergy Hives Verified 06/27/19 17:58 [From Cipro] Home Medications: Home Meds Insulin Aspart [NovoLOG] 30 units SQ TIDAC 11/17/13 [History] Insulin Detemir [Levemir] 80 units SQ BID 11/17/13 [History] Amitriptyline [Elavil] 25 mg PO BEDTIME 04/29/19 [History] Venlafaxine [Effexor XR] 300 mg PO DAILY 04/29/19 [History] cloNIDine HCl [Catapres] 0.3 mg PO BEDTIME 04/29/19 [History] Pregabalin [Lyrica] 150 mg PO DAILY 05/31/19 [History] Amoxicillin 500 mg PO TID 06/27/19 [History] Past Medical History HEENT History: Reports: Impaired Vision, Other (See Below) Other HEENT History: dental caries Cardiovascular History: Reports: Hypertension Respiratory History: Reports: Asthma Other Genitourinary History: kidney disease Musculoskeletal History: Reports: Fracture Psychiatric History: Reports: Anxiety, Depression Endocrine/Metabolic History: Reports: Diabetes, Type I, Obesity/BMI 30+ - Infectious Disease History Infectious Disease History: Reports: Chicken Pox, Shingles - Past Surgical History Musculoskeletal Surgical History: Reports: Other (See Below) Other Musculoskeletal Surgeries/Procedures:: ankle surgery Social & Family History - Tobacco Use Smoking Status *Q: Light Tobacco Smoker Years of Tobacco use: 35 Packs/Tins Daily: 0.5 - Caffeine Use Caffeine Use: Reports: Coffee, Soda Other Caffeine Use: 3 cups of coffee per day - Recreational Drug Use Recreational Drug Use: No - Living Situation & Occupation Living situation: Reports: with Significant Other (lives in [place], [place] H&P Review of Systems - Review of Systems: Review Of Systems: See Below General: Reports: Fever, Chills, Weakness, Fatigue, Decreased Appetite HEENT: Reports: Other (chronic dental pain, currently taking amoxicillin) Pulmonary: Reports: No Symptoms Cardiovascular: Reports: Chest Pain (reports a pain in chest 2 or 3 days ago, none since. ) Gastrointestinal: Reports: Abdominal Pain (across the upper abdomen), Decreased Appetite (not able to eat food for the past two days. dry heaves upon arrival to ER resolved with Zofran.), Vomiting (came to the ER with dry heaves. denies any bloody or dark colored emesis.) Genitourinary: Reports: No Symptoms Musculoskeletal: Reports: No Symptoms, Other (hx of left lower leg fracture with surgical intervention.) Skin: Reports: Dryness (bilateral feet), Rash (chronic lower leg rash for the past 2 years. ) Psychiatric: Reports: No Symptoms, Depression (treated) Neurological: Reports: Numbness (chronic diabetic neuropathy of feet), Pre- Existing Deficit (diabetic neuropathy treated with Lyrica) Hematologic/Lymphatic: Reports: No Symptoms Immunologic: Reports: No Symptoms Review of Systems Comment:: Diabetes type 1, reports usually has blood sugars in sedrick 300 to 400 range. It's "normal" for him. Exam - Exam Exam: See Below - Vital Signs Vital Signs: Last Vital Signs Temp 36.8 C 06/27/19 17:57 Pulse 133 H 06/27/19 19:50 Resp 16 06/27/19 18:21 BP 137/84 06/27/19 19:50 Pulse Ox 100 06/27/19 18:21 Weight: 125.3 kg - Exam Quality Assessment: DVT Prophylaxis General: Alert, Oriented, Cooperative, Mild Distress HEENT: PERRLA, Conjunctiva Clear, Hearing Intact, Mucosa Moist & [place], Posterior Pharynx Clear, Pupils Equal, Pupils Reactive, Other (right upper and lower molars with dental disease) Neck: Supple, Trachea Midline Lungs: Clear to Auscultation, Normal Respiratory Effort Cardiovascular: Regular Rhythm, Normal S1, Normal S2, Tachycardia GI/Abdominal Exam: Normal Bowel Sounds, Soft, Tender (upper abdomen), Other ( obese) (Male) Exam: Deferred Rectal (Males) Exam: Deferred Back Exam: Normal Inspection, Full Range of Motion Extremities: Normal Range of Motion, Non-Tender, No Pedal Edema, Other ( bilateral lower legs with chronic dry rash, thick scabes noted to left lower leg. ) Peripheral Pulses: 1+: Dorsalis Pedis (L), Dorsalis Pedis (R), 2+: Radial (L), Radial (R) Skin: Warm, Dry, Rash (lower legs) Neurological: Reflexes Equal Bilateral, Strength Equal Bilateral Neuro Extensive - Mental Status: Alert, Oriented x3, Normal Mood/Affect, Normal Cognition Neuro Extensive - Motor, Sensory, Reflexes: CN II-XII Intact, Normal Gait, Normal Reflexes Psychiatric: Alert, Normal Affect, Normal Mood - Patient Data Lab Results Last 24 hrs: Laboratory Results - last 24 hr 06/27/19 06/27/19 06/27/19 Range/Units 18:36 18:36 18:51 WBC 14.3 H (4.5-11.0) K/uL RBC 5.26 (4.30-5.90) M/uL Hgb 15.9 H (12.0-15.0) g/dL Hct 48.2 (40.0-54.0) % MCV 92 (80-98) fL MCH 30 (27-31) pg MCHC 33 (32-36) % Plt Count 286 (150-400) K/uL Neut % (Auto) 66 (36-66) % Lymph % (Auto) 24 (24-44) % Henry % (Auto) 8 H (2-6) % Eos % (Auto) 2 (2-4) % Baso % (Auto) 0 (0-1) % VBG pH 7.417 (7.350-7.450) Sodium 132 L (140-148) mmol/L Potassium 4.8 (3.6-5.2) mmol/L Chloride 95 L (100-108) mmol/L Carbon Dioxide 27 (21-32) mmol/L Anion Gap 14.8 H (5.0-14.0) mmol/L BUN 20 H (7-18) mg/dL Creatinine 1.1 (0.8-1.3) mg/dL Est Cr Clr Drug Dosing 74.92 mL/min Estimated GFR (MDRD) > 60 (>60) Glucose 488 H* (74-106) mg/dL Lactic Acid (0.4-2.0) mmol/L Calcium 8.8 (8.5-10.1) mg/dL Total Bilirubin 0.3 (0.2-1.0) mg/dL AST 13 L D (15-37) U/L ALT 29 (12-78) U/L Alkaline Phosphatase 131 H (46-116) U/L Troponin I (0.000-0.056) ng/mL C-Reactive Protein (0.0-0.3) mg/dL Total Protein 7.7 (6.4-8.2) g/dL Albumin 3.1 L (3.4-5.0) g/dL Globulin 4.6 H (2.3-3.5) g/dL Albumin/Globulin Ratio 0.7 L (1.2-2.2) Amylase (25-115) U/L Lipase (73-393) U/L Urine Color (YELLOW) Urine Appearance (CLEAR) Urine pH (5.0-8.0) Ur Specific [place] (1.008-1.030) Urine Protein (NEGATIVE) mg/dL Urine Glucose (UA) (NEGATIVE) mg/dL Urine Ketones (NEGATIVE) mg/dL Urine Occult Blood (NEGATIVE) Urine Nitrite (NEGATIVE) Urine Bilirubin (NEGATIVE) Urine Urobilinogen (0.2-1.0) EU/dL Ur Leukocyte Esterase (NEGATIVE) Urine RBC (0-5) Urine WBC (0-5) Ur Epithelial Cells Amorphous Sediment Urine Bacteria Urine Mucus Urine Opiates Screen (NEGATIVE) Ur Oxycodone Screen (NEGATIVE) Urine Methadone Screen (NEGATIVE) Ur Propoxyphene Screen (NEGATIVE) Ur Barbiturates Screen (NEGATIVE) Ur Tricyclics Screen (NEGATIVE) Ur Phencyclidine Scrn (NEGATIVE) Ur Amphetamine Screen (NEGATIVE) U Methamphetamines Scrn (NEGATIVE) Urine MDMA Screen (NEGATIVE) U Benzodiazepines Scrn (NEGATIVE) U Cocaine Metab Screen (NEGATIVE) U Marijuana (THC) Screen (NEGATIVE) 06/27/19 06/27/19 06/27/19 Range/Units 18:56 18:56 19:26 WBC (4.5-11.0) K/uL RBC (4.30-5.90) M/uL Hgb (12.0-15.0) g/dL Hct (40.0-54.0) % MCV (80-98) fL MCH (27-31) pg MCHC (32-36) % Plt Count (150-400) K/uL Neut % (Auto) (36-66) % Lymph % (Auto) (24-44) % Henry % (Auto) (2-6) % Eos % (Auto) (2-4) % Baso % (Auto) (0-1) % VBG pH (7.350-7.450) Sodium (140-148) mmol/L Potassium (3.6-5.2) mmol/L Chloride (100-108) mmol/L Carbon Dioxide (21-32) mmol/L Anion Gap (5.0-14.0) mmol/L BUN (7-18) mg/dL Creatinine (0.8-1.3) mg/dL Est Cr Clr Drug Dosing mL/min Estimated GFR (MDRD) (>60) Glucose (74-106) mg/dL Lactic Acid 2.3 H (0.4-2.0) mmol/L Calcium (8.5-10.1) mg/dL Total Bilirubin (0.2-1.0) mg/dL AST (15-37) U/L ALT (12-78) U/L Alkaline Phosphatase (46-116) U/L Troponin I (0.000-0.056) ng/mL C-Reactive Protein (0.0-0.3) mg/dL Total Protein (6.4-8.2) g/dL Albumin (3.4-5.0) g/dL Globulin (2.3-3.5) g/dL Albumin/Globulin Ratio (1.2-2.2) Amylase (25-115) U/L Lipase (73-393) U/L Urine Color Yellow (YELLOW) Urine Appearance Clear (CLEAR) Urine pH 5.5 (5.0-8.0) Ur Specific [place] 1.010 (1.008-1.030) Urine Protein Negative (NEGATIVE) mg/dL Urine Glucose (UA) 500 H (NEGATIVE) mg/dL Urine Ketones Trace H (NEGATIVE) mg/dL Urine Occult Blood Negative (NEGATIVE) Urine Nitrite Negative (NEGATIVE) Urine Bilirubin Negative (NEGATIVE) Urine Urobilinogen 0.2 (0.2-1.0) EU/dL Ur Leukocyte Esterase Negative (NEGATIVE) Urine RBC Not seen (0-5) Urine WBC Not seen (0-5) Ur Epithelial Cells Rare Amorphous Sediment Not seen Urine Bacteria Not seen Urine Mucus Not seen Urine Opiates Screen Negative (NEGATIVE) Ur Oxycodone Screen Negative (NEGATIVE) Urine Methadone Screen Negative (NEGATIVE) Ur Propoxyphene Screen Negative (NEGATIVE) Ur Barbiturates Screen Negative (NEGATIVE) Ur Tricyclics Screen Presumptive positive H (NEGATIVE) Ur Phencyclidine Scrn Negative (NEGATIVE) Ur Amphetamine Screen Negative (NEGATIVE) U Methamphetamines Scrn Negative (NEGATIVE) Urine MDMA Screen Negative (NEGATIVE) U Benzodiazepines Scrn Negative (NEGATIVE) U Cocaine Metab Screen Negative (NEGATIVE) U Marijuana (THC) Screen Negative (NEGATIVE) 06/27/19 06/27/19 06/27/19 Range/Units 19:34 19:56 20:07 WBC (4.5-11.0) K/uL RBC (4.30-5.90) M/uL Hgb (12.0-15.0) g/dL Hct (40.0-54.0) % MCV (80-98) fL MCH (27-31) pg MCHC (32-36) % Plt Count (150-400) K/uL Neut % (Auto) (36-66) % Lymph % (Auto) (24-44) % Henry % (Auto) (2-6) % Eos % (Auto) (2-4) % Baso % (Auto) (0-1) % VBG pH (7.350-7.450) Sodium (140-148) mmol/L Potassium (3.6-5.2) mmol/L Chloride (100-108) mmol/L Carbon Dioxide (21-32) mmol/L Anion Gap (5.0-14.0) mmol/L BUN (7-18) mg/dL Creatinine (0.8-1.3) mg/dL Est Cr Clr Drug Dosing mL/min Estimated GFR (MDRD) (>60) Glucose (74-106) mg/dL Lactic Acid (0.4-2.0) mmol/L Calcium (8.5-10.1) mg/dL Total Bilirubin (0.2-1.0) mg/dL AST (15-37) U/L ALT (12-78) U/L Alkaline Phosphatase (46-116) U/L Troponin I < 0.017 < 0.017 (0.000-0.056) ng/mL C-Reactive Protein 1.10 H (0.0-0.3) mg/dL Total Protein (6.4-8.2) g/dL Albumin (3.4-5.0) g/dL Globulin (2.3-3.5) g/dL Albumin/Globulin Ratio (1.2-2.2) Amylase (25-115) U/L Lipase (73-393) U/L Urine Color (YELLOW) Urine Appearance (CLEAR) Urine pH (5.0-8.0) Ur Specific [place] (1.008-1.030) Urine Protein (NEGATIVE) mg/dL Urine Glucose (UA) (NEGATIVE) mg/dL Urine Ketones (NEGATIVE) mg/dL Urine Occult Blood (NEGATIVE) Urine Nitrite (NEGATIVE) Urine Bilirubin (NEGATIVE) Urine Urobilinogen (0.2-1.0) EU/dL Ur Leukocyte Esterase (NEGATIVE) Urine RBC (0-5) Urine WBC (0-5) Ur Epithelial Cells Amorphous Sediment Urine Bacteria Urine Mucus Urine Opiates Screen (NEGATIVE) Ur Oxycodone Screen (NEGATIVE) Urine Methadone Screen (NEGATIVE) Ur Propoxyphene Screen (NEGATIVE) Ur Barbiturates Screen (NEGATIVE) Ur Tricyclics Screen (NEGATIVE) Ur Phencyclidine Scrn (NEGATIVE) Ur Amphetamine Screen (NEGATIVE) U Methamphetamines Scrn (NEGATIVE) Urine MDMA Screen (NEGATIVE) U Benzodiazepines Scrn (NEGATIVE) U Cocaine Metab Screen (NEGATIVE) U Marijuana (THC) Screen (NEGATIVE) 06/27/19 06/27/19 Range/Units 20:10 20:11 WBC (4.5-11.0) K/uL RBC (4.30-5.90) M/uL Hgb (12.0-15.0) g/dL Hct (40.0-54.0) % MCV (80-98) fL MCH (27-31) pg MCHC (32-36) % Plt Count (150-400) K/uL Neut % (Auto) (36-66) % Lymph % (Auto) (24-44) % Henry % (Auto) (2-6) % Eos % (Auto) (2-4) % Baso % (Auto) (0-1) % VBG pH (7.350-7.450) Sodium (140-148) mmol/L Potassium (3.6-5.2) mmol/L Chloride (100-108) mmol/L Carbon Dioxide (21-32) mmol/L Anion Gap (5.0-14.0) mmol/L BUN (7-18) mg/dL Creatinine (0.8-1.3) mg/dL Est Cr Clr Drug Dosing mL/min Estimated GFR (MDRD) (>60) Glucose (74-106) mg/dL Lactic Acid (0.4-2.0) mmol/L Calcium (8.5-10.1) mg/dL Total Bilirubin (0.2-1.0) mg/dL AST (15-37) U/L ALT (12-78) U/L Alkaline Phosphatase (46-116) U/L Troponin I (0.000-0.056) ng/mL C-Reactive Protein (0.0-0.3) mg/dL Total Protein (6.4-8.2) g/dL Albumin (3.4-5.0) g/dL Globulin (2.3-3.5) g/dL Albumin/Globulin Ratio (1.2-2.2) Amylase 64 (25-115) U/L Lipase 210 (73-393) U/L Urine Color (YELLOW) Urine Appearance (CLEAR) Urine pH (5.0-8.0) Ur Specific [place] (1.008-1.030) Urine Protein (NEGATIVE) mg/dL Urine Glucose (UA) (NEGATIVE) mg/dL Urine Ketones (NEGATIVE) mg/dL Urine Occult Blood (NEGATIVE) Urine Nitrite (NEGATIVE) Urine Bilirubin (NEGATIVE) Urine Urobilinogen (0.2-1.0) EU/dL Ur Leukocyte Esterase (NEGATIVE) Urine RBC (0-5) Urine WBC (0-5) Ur Epithelial Cells Amorphous Sediment Urine Bacteria Urine Mucus Urine Opiates Screen (NEGATIVE) Ur Oxycodone Screen (NEGATIVE) Urine Methadone Screen (NEGATIVE) Ur Propoxyphene Screen (NEGATIVE) Ur Barbiturates Screen (NEGATIVE) Ur Tricyclics Screen (NEGATIVE) Ur Phencyclidine Scrn (NEGATIVE) Ur Amphetamine Screen (NEGATIVE) U Methamphetamines Scrn (NEGATIVE) Urine MDMA Screen (NEGATIVE) U Benzodiazepines Scrn (NEGATIVE) U Cocaine Metab Screen (NEGATIVE) U Marijuana (THC) Screen (NEGATIVE) Result Diagrams: 06/27/19 18:36 06/27/19 18:36 Simon Results Last 24 hrs: Microbiology 06/27/19 21:29 Influenza Type A Antigen Screen - Final Nasal, Unspecified NEGATIVE INFLUENZA A VIRUS AG REFERENCE RANGE: NEGATIVE Influenza Type B Antigen Screen - Final NEGATIVE INFLUENZA B VIRUS AG REFERENCE RANGE: NEGATIVE Sepsis Event Note - Evaluation Sepsis Screening Result: No Definite Risk - Focused Exam Vital Signs: Vital Signs Temp Pulse Resp BP Pulse Ox 06/27/19 19:50 133 H 137/84 06/27/19 19:21 133 H 127/85 06/27/19 18:50 133 H 128/91 H 06/27/19 18:21 140 H 16 143/71 H 100 06/27/19 17:57 36.8 C 143 H 18 141/87 H 98 06/27/19 17:53 36.8 C 143 H 18 141/87 H 98 Date Exam was Performed: 06/27/19 Time Exam was Performed: 22:18 - Problem List (1) Hyperglycemia due to type 1 diabetes mellitus SNOMED Code(s): 973124587054007, 855856007916939 ICD Code: E10.65 - TYPE 1 DIABETES MELLITUS WITH HYPERGLYCEMIA Status: Acute Current Visit: Yes (2) Nausea & vomiting SNOMED Code(s): 50280387 ICD Code: R11.2 - NAUSEA WITH VOMITING, UNSPECIFIED Status: Acute Priority: High Current Visit: Yes Problem List Initiated/Reviewed/Updated: Yes Orders Last 24hrs: Active Orders 24 hr Category Date Time Status Patient Status Manage Transfer [TRANSFER] Routine ADT 06/27/19 21:51 Active EKG Documentation Completion [RC] ASDIRECTED Care 06/27/19 19:32 Active CULTURE BLOOD [BC] Urgent Lab 06/27/19 21:00 Received CULTURE BLOOD [BC] Urgent Lab 06/27/19 21:10 Received LACTATE SEPSIS W/ REFLEX [CHEM] Stat Lab 06/27/19 20:54 Ordered Iopamidol [Isovue-300 (61%)] Med 06/27/19 20:30 Active 150 ml IV . DIRECTED Pantoprazole [ProTONIX IV] Med 06/27/19 22:00 Active 40 mg IVPUSH Q12H Sodium Chloride 0.9% [Normal Saline] 1,000 ml Med 06/27/19 18:30 Active IV ASDIRECTED Sodium Chloride 0.9% [Normal Saline] 1,000 ml Med 06/27/19 19:45 Active IV ASDIRECTED Sodium Chloride 0.9% [Normal Saline] 1,000 ml Med 06/27/19 19:45 Active IV ASDIRECTED Sodium Chloride 0.9% [Normal Saline] 1,000 ml Med 06/27/19 22:00 Active IV ASDIRECTED Sodium Chloride 0.9% [Normal Saline] 80 ml Med 06/27/19 20:30 Active IV ASDIRECTED Sodium Chloride 0.9% [Saline Flush] Med 06/27/19 20:30 Active 10 ml FLUSH ASDIRECTED PRN Blood Culture x2 Reflex Set [OM.PC] Urgent Oth 06/27/19 20:59 Ordered Resuscitation Status Routine Resus Stat 06/27/19 21:54 Ordered EKG 12 Lead [EK] Routine Ther 06/27/19 19:32 Ordered Medication Orders Sodium Chloride (Normal Saline) 1,000 mls @ 999 mls/hr IV ASDIRECTED CRIS Last Admin: 06/27/19 18:56 Dose: 999 mls/hr Sodium Chloride (Normal Saline) 1,000 mls @ 999 mls/hr IV ASDIRECTED CRIS Last Admin: 06/27/19 19:40 Dose: 999 mls/hr Sodium Chloride (Normal Saline) 1,000 mls @ 999 mls/hr IV ASDIRECTED CRIS Last Admin: 06/27/19 21:27 Dose: 999 mls/hr Sodium Chloride (Normal Saline) 80 mls @ 3 mls/sec IV ASDIRECTED CRIS Last Admin: 06/27/19 20:41 Dose: 3 mls/sec Sodium Chloride (Normal Saline) 1,000 mls @ 125 mls/hr IV ASDIRECTED CRIS Iopamidol (Isovue-300 (61%)) 150 ml IV . DIRECTED [facility] Last Admin: 06/27/19 20:41 Dose: 150 ml Pantoprazole Sodium (Protonix Iv) 40 mg IVPUSH Q12H CRIS Sodium Chloride (Saline Flush) 10 ml FLUSH ASDIRECTED PRN PRN Reason: Keep Vein Open Last Admin: 06/27/19 20:41 Dose: 10 ml Assessment/Plan Comment:: Assessment/Plan Comment:: Nausea and vomiting 2 days ASSESSMENT AND PLAN: This is 49 year old male presents to ER for evaluation of two days of nausea and vomiting. now with dry heaves. unable to eat food for the past two days. has fever, chills. denies any bloody or dark emesis or stools. reports has diabetes type one and has been taking his insulin during this illness. reports his usual blood glucose is between 300's and 400' s. denies drugs or alcohol use. currently being treated for dental infection. vaccinated Flu ER work up Labs: elevated wbc 14.5, blood glucose 488, Ph 7.4, Lactic acid 2.3, amylase 64 and lipase 210 are within normal range. Trop <0.017, blood cultures x2 pending, influenza A & B are negative.. TSH and HgA1c pending chest xray is negative, abdomen-pelvis CT shows gastritis no other abnormalities. Nausea and vomiting with upper abdominal pain-Abdomen Pelvis CT scan obtained in ER shows gastritis otherwise negative for acute process. -Blood cultures pending -IV fluids for hydration, Normal Saline 125 ml/hr -anti-emetic -Pain medication ordered IV and PO -am labs CBC, BMP TYPE 2 DIABETES MELLITUS -poor control, reports blood glucose usually in 300 to 400 range -Continue outpatient medical therapy -Levemir 80 units subcut bid -Novolog 30 unit subcut tid with meals -4 times daily glucometers -high-dose sliding scale Humalog MAINTENANCE ISSUES -DVT prophylaxis; Lovenox 40 mg subcut daily -GI prophylaxis; IV Protonix 40 mg po bid -Dubon catheter; not indicated -Nutrition; consistent carb diet -Nicotine dependence; nicotine patch decline will try nicotine gum CODE STATUS-FULL CODE ADMISSION STATUS-this patient will be admitted to observation status, expect no more than a one night hospital stay for evaluation and management of problems as outlined above. DISPOSITION-anticipate discharge to home after the hospital stay. PRIMARY CARE PROVIDER-Nalini Newell. PROGRAMMING MANAGER, [facility] HOSPITALIST - Dr. Oconnor - Mortality Measure Prognosis:: Good - Mortality Measure Prognosis:: Good
[2019-06-27] MEDS ORDERED: Albuterol 0.083% 2.5 MG/3 ML Neb Soln NEB PRN (22:35)
[2019-06-27] MEDS ORDERED: cloNIDine 0.1 MG Tab PO SCH (22:35)
[2019-06-27] MEDS ORDERED: Docusate Sodium 100 MG Cap PO PRN (22:35)
[2019-06-27] MEDS ORDERED: Pregabalin 50 MG Cap PO SCH (22:35)
[2019-06-27] MEDS ORDERED: Amitriptyline 25 MG Tab PO SCH (22:35)
[2019-06-27] MEDS ORDERED: INSULIN DETEMIR 80 UNIT SQ SCH (22:35)
[2019-06-27] MEDS ORDERED: Ondansetron 4 MG Tab.DIS PO PRN (22:35)
[2019-06-27] MEDS ORDERED: Zolpidem 5 MG Tab PO PRN (22:35)
[2019-06-27] MEDS ORDERED: Acetaminophen 325 MG Tab PO PRN (22:35)
[2019-06-27] MEDS ORDERED: LORazepam 2 MG/ML SDV IV PRN (22:35)
[2019-06-27] MEDS: Sodium Chloride 0.9% 1,000 ML IV SCH (22:55)
[2019-06-27] MEDS ORDERED: Nicotine Polacrilex 2 MG Gum CHEW PRN (23:10)
[2019-06-27] MEDS: Acetaminophen/oxyCODONE 325-5 MG Tab PO PRN (23:15)
[2019-06-27] MEDS: Pantoprazole 40 MG Vial IVPUSH SCH (23:18)
[2019-06-27] MEDS: Amoxicillin 500 MG Cap PO SCH (23:29)
[2019-06-27] MEDS: Insulin Glargine,Human Rec. Analog 100 Units/ML 3 ML Pen SUBCUT SCH (23:30)
[2019-06-28 03:22] VITALS: PULSE 114
[2019-06-28] MEDS: Acetaminophen/oxyCODONE 325-5 MG Tab PO PRN ×2 (03:22→07:30)
[2019-06-28] MEDS: Sodium Chloride 0.9% 1,000 ML IV SCH (06:12)
[2019-06-28] MEDS ORDERED: INSULIN ASPART 30 UNIT SQ SCH (07:30)
[2019-06-28 07:37] VITALS: BP 126/68
[2019-06-28] MEDS: Insulin Lispro 100 Unit/ML 3 ML KwikPen SUBCUT SCH ×4 (07:56→11:18)
[2019-06-28] MEDS: Insulin Glargine,Human Rec. Analog 100 Units/ML 3 ML Pen SUBCUT SCH (08:30)
[2019-06-28] MEDS: Amoxicillin 500 MG Cap PO SCH (08:31)
[2019-06-28] MEDS ORDERED: Enoxaparin 40 MG/0.4 ML Syringe SUBCUT SCH (09:00)
[2019-06-28] MEDS ORDERED: Venlafaxine 75 MG Cap.ER PO SCH (09:00)
[2019-06-28] MEDS: Pantoprazole 40 MG Vial IVPUSH SCH (09:57)
--- NOTE | 2019-06-28 10:56 | PCM.DCSUM1 ---
Discharge Summary - Hospital Course Brief History: Mr. Trejo is a 49-year-old gentleman who was admitted through the emergency department to observation status with nausea, vomiting, dehydration, secondary to gastritis. - Discharge Data Discharge Date: 06/28/19 Discharge Disposition: Home, Self-Care 01 Condition: Fair - Referral to Home Health Primary Care Physician: PCP None - Discharge Diagnosis/Problem(s) (1) Gastritis SNOMED Code(s): 1160144 ICD Code: K29.70 - GASTRITIS, UNSPECIFIED, WITHOUT BLEEDING Status: Acute Current Visit: Yes (2) Nausea & vomiting SNOMED Code(s): 89151535 ICD Code: R11.2 - NAUSEA WITH VOMITING, UNSPECIFIED Status: Acute Current Visit: Yes (3) Hyperglycemia due to type 1 diabetes mellitus SNOMED Code(s): 734736863530186, 468849397992883 ICD Code: E10.65 - TYPE 1 DIABETES MELLITUS WITH HYPERGLYCEMIA Status: Acute Current Visit: Yes (4) Dehydration SNOMED Code(s): 76777678 ICD Code: E86.0 - DEHYDRATION Status: Acute Current Visit: Yes - Patient Summary/Data Hospital Course: Mr. Trejo is a 49-year-old gentleman who was admitted through the emergency department observation status for further management of weakness, dehydration, nausea, and vomiting, secondary to underlying gastritis. He had symptoms for about 2 days prior to admission associated with epigastric abdominal pain. He has a known history of longstanding diabetes mellitus, with poor control. CT scan was obtained in the emergency department and showed thickening of the stomach wall consistent with underlying gastritis. No other significant abnormalities were identified and other than hyperglycemia labs were unremarkable. Lactic acid level was mildly elevated and felt to be secondary to dehydration. He was given IV fluids for hydration as well as medication as needed for pain and nausea. Protonix 40 mg IV twice daily was initiated. Blood sugars were elevated but did come under somewhat better control during his hospital stay. By the following morning nausea and vomiting had resolved and he tolerated a regular breakfast. He continued to experience some epigastric abdominal pain, but no further nausea. Follow-up appointment will be scheduled with his primary care provider within 1 week. He will be on Protonix 40 mg twice daily for 2 weeks then once daily thereafter. Activity will be as tolerated and he will be on a diabetic soft low residue diet. - Patient Instructions Diet: Diabetic Diet, GI Soft/Low Residue/Low Fiber Activity: As Tolerated Other/Special Instructions: Please schedule follow-up appointment with primary care provider within 1 week. - Discharge Plan *PRESCRIPTION DRUG MONITORING PROGRAM REVIEWED*: Not Applicable *COPY OF PRESCRIPTION DRUG MONITORING REPORT IN PATIENT JAMISON: Not Applicable Prescriptions/Med Rec: Acetaminophen/oxyCODONE [Percocet 325-5 MG] 1 tab PO Q4H PRN #8 tablet PRN Reason: Pain (Moderate 4-6) Pantoprazole Sodium [Protonix] 40 mg PO BID #60 tablet. Home Medications: Home Meds Insulin Aspart [NovoLOG] 30 units SQ TIDAC 11/17/13 [History] Insulin Detemir [Levemir] 80 units SQ BID 11/17/13 [History] Amitriptyline [Elavil] 25 mg PO BEDTIME 04/29/19 [History] Venlafaxine [Effexor XR] 300 mg PO DAILY 04/29/19 [History] cloNIDine HCl [Catapres] 0.3 mg PO BEDTIME 04/29/19 [History] Pregabalin [Lyrica] 150 mg PO DAILY 05/31/19 [History] Amoxicillin 500 mg PO TID 06/27/19 [History] Acetaminophen/oxyCODONE [Percocet 325-5 MG] 1 tab PO Q4H PRN #8 tablet 06/28/19 [Rx] Pantoprazole Sodium [Protonix] 40 mg PO BID #60 tablet. 06/28/19 [Rx] - Discharge Summary/Plan Comment DC Time >30 min.: No - Patient Data Vitals - Most Recent: Last Vital Signs Temp 98.2 F 06/28/19 07:35 Pulse 114 H 06/28/19 07:35 Resp 16 06/28/19 07:35 BP 126/68 06/28/19 07:35 Pulse Ox 96 06/28/19 07:35 Weight - Most Recent: 280 lb 15.984 oz I&O - Last 24 hours: Intake & Output 06/27/19 06/28/19 06/28/19 22:59 06:59 14:59 Intake Total 1600 420 Output Total 500 Balance 1600 -80 Lab Results - Last 24 hrs: Laboratory Results - last 24 hr 06/27/19 06/27/19 06/27/19 Range/Units 18:36 18:36 18:51 WBC 14.3 H (4.5-11.0) K/uL RBC 5.26 (4.30-5.90) M/uL Hgb 15.9 H (12.0-15.0) g/dL Hct 48.2 (40.0-54.0) % MCV 92 (80-98) fL MCH 30 (27-31) pg MCHC 33 (32-36) % Plt Count 286 (150-400) K/uL Neut % (Auto) 66 (36-66) % Lymph % (Auto) 24 (24-44) % Frederick % (Auto) 8 H (2-6) % Eos % (Auto) 2 (2-4) % Baso % (Auto) 0 (0-1) % VBG pH 7.417 (7.350-7.450) Sodium 132 L (140-148) mmol/L Potassium 4.8 (3.6-5.2) mmol/L Chloride 95 L (100-108) mmol/L Carbon Dioxide 27 (21-32) mmol/L Anion Gap 14.8 H (5.0-14.0) mmol/L BUN 20 H (7-18) mg/dL Creatinine 1.1 (0.8-1.3) mg/dL Est Cr Clr Drug Dosing 74.92 mL/min Estimated GFR (MDRD) > 60 (>60) Glucose 488 H* (74-106) mg/dL Hemoglobin A1c (4.5-6.2) % Lactic Acid (0.4-2.0) mmol/L Calcium 8.8 (8.5-10.1) mg/dL Total Bilirubin 0.3 (0.2-1.0) mg/dL AST 13 L D (15-37) U/L ALT 29 (12-78) U/L Alkaline Phosphatase 131 H (46-116) U/L Troponin I (0.000-0.056) ng/mL C-Reactive Protein (0.0-0.3) mg/dL Total Protein 7.7 (6.4-8.2) g/dL Albumin 3.1 L (3.4-5.0) g/dL Globulin 4.6 H (2.3-3.5) g/dL Albumin/Globulin Ratio 0.7 L (1.2-2.2) Amylase (25-115) U/L Lipase (73-393) U/L TSH, Ultra Sensitive (0.358-3.740) uIU/mL Urine Color (YELLOW) Urine Appearance (CLEAR) Urine pH (5.0-8.0) Ur Specific [place] (1.008-1.030) Urine Protein (NEGATIVE) mg/dL Urine Glucose (UA) (NEGATIVE) mg/dL Urine Ketones (NEGATIVE) mg/dL Urine Occult Blood (NEGATIVE) Urine Nitrite (NEGATIVE) Urine Bilirubin (NEGATIVE) Urine Urobilinogen (0.2-1.0) EU/dL Ur Leukocyte Esterase (NEGATIVE) Urine RBC (0-5) Urine WBC (0-5) Ur Epithelial Cells Amorphous Sediment Urine Bacteria Urine Mucus Urine Opiates Screen (NEGATIVE) Ur Oxycodone Screen (NEGATIVE) Urine Methadone Screen (NEGATIVE) Ur Propoxyphene Screen (NEGATIVE) Ur Barbiturates Screen (NEGATIVE) Ur Tricyclics Screen (NEGATIVE) Ur Phencyclidine Scrn (NEGATIVE) Ur Amphetamine Screen (NEGATIVE) U Methamphetamines Scrn (NEGATIVE) Urine MDMA Screen (NEGATIVE) U Benzodiazepines Scrn (NEGATIVE) U Cocaine Metab Screen (NEGATIVE) U Marijuana (THC) Screen (NEGATIVE) 06/27/19 06/27/19 06/27/19 Range/Units 18:56 18:56 19:26 WBC (4.5-11.0) K/uL RBC (4.30-5.90) M/uL Hgb (12.0-15.0) g/dL Hct (40.0-54.0) % MCV (80-98) fL MCH (27-31) pg MCHC (32-36) % Plt Count (150-400) K/uL Neut % (Auto) (36-66) % Lymph % (Auto) (24-44) % Frederick % (Auto) (2-6) % Eos % (Auto) (2-4) % Baso % (Auto) (0-1) % VBG pH (7.350-7.450) Sodium (140-148) mmol/L Potassium (3.6-5.2) mmol/L Chloride (100-108) mmol/L Carbon Dioxide (21-32) mmol/L Anion Gap (5.0-14.0) mmol/L BUN (7-18) mg/dL Creatinine (0.8-1.3) mg/dL Est Cr Clr Drug Dosing mL/min Estimated GFR (MDRD) (>60) Glucose (74-106) mg/dL Hemoglobin A1c (4.5-6.2) % Lactic Acid 2.3 H (0.4-2.0) mmol/L Calcium (8.5-10.1) mg/dL Total Bilirubin (0.2-1.0) mg/dL AST (15-37) U/L ALT (12-78) U/L Alkaline Phosphatase (46-116) U/L Troponin I (0.000-0.056) ng/mL C-Reactive Protein (0.0-0.3) mg/dL Total Protein (6.4-8.2) g/dL Albumin (3.4-5.0) g/dL Globulin (2.3-3.5) g/dL Albumin/Globulin Ratio (1.2-2.2) Amylase (25-115) U/L Lipase (73-393) U/L TSH, Ultra Sensitive (0.358-3.740) uIU/mL Urine Color Yellow (YELLOW) Urine Appearance Clear (CLEAR) Urine pH 5.5 (5.0-8.0) Ur Specific [place] 1.010 (1.008-1.030) Urine Protein Negative (NEGATIVE) mg/dL Urine Glucose (UA) 500 H (NEGATIVE) mg/dL Urine Ketones Trace H (NEGATIVE) mg/dL Urine Occult Blood Negative (NEGATIVE) Urine Nitrite Negative (NEGATIVE) Urine Bilirubin Negative (NEGATIVE) Urine Urobilinogen 0.2 (0.2-1.0) EU/dL Ur Leukocyte Esterase Negative (NEGATIVE) Urine RBC Not seen (0-5) Urine WBC Not seen (0-5) Ur Epithelial Cells Rare Amorphous Sediment Not seen Urine Bacteria Not seen Urine Mucus Not seen Urine Opiates Screen Negative (NEGATIVE) Ur Oxycodone Screen Negative (NEGATIVE) Urine Methadone Screen Negative (NEGATIVE) Ur Propoxyphene Screen Negative (NEGATIVE) Ur Barbiturates Screen Negative (NEGATIVE) Ur Tricyclics Screen Presumptive positive H (NEGATIVE) Ur Phencyclidine Scrn Negative (NEGATIVE) Ur Amphetamine Screen Negative (NEGATIVE) U Methamphetamines Scrn Negative (NEGATIVE) Urine MDMA Screen Negative (NEGATIVE) U Benzodiazepines Scrn Negative (NEGATIVE) U Cocaine Metab Screen Negative (NEGATIVE) U Marijuana (THC) Screen Negative (NEGATIVE) 06/27/19 06/27/19 06/27/19 Range/Units 19:34 19:56 20:07 WBC (4.5-11.0) K/uL RBC (4.30-5.90) M/uL Hgb (12.0-15.0) g/dL Hct (40.0-54.0) % MCV (80-98) fL MCH (27-31) pg MCHC (32-36) % Plt Count (150-400) K/uL Neut % (Auto) (36-66) % Lymph % (Auto) (24-44) % Frederick % (Auto) (2-6) % Eos % (Auto) (2-4) % Baso % (Auto) (0-1) % VBG pH (7.350-7.450) Sodium (140-148) mmol/L Potassium (3.6-5.2) mmol/L Chloride (100-108) mmol/L Carbon Dioxide (21-32) mmol/L Anion Gap (5.0-14.0) mmol/L BUN (7-18) mg/dL Creatinine (0.8-1.3) mg/dL Est Cr Clr Drug Dosing mL/min Estimated GFR (MDRD) (>60) Glucose (74-106) mg/dL Hemoglobin A1c (4.5-6.2) % Lactic Acid (0.4-2.0) mmol/L Calcium (8.5-10.1) mg/dL Total Bilirubin (0.2-1.0) mg/dL AST (15-37) U/L ALT (12-78) U/L Alkaline Phosphatase (46-116) U/L Troponin I < 0.017 < 0.017 (0.000-0.056) ng/mL C-Reactive Protein 1.10 H (0.0-0.3) mg/dL Total Protein (6.4-8.2) g/dL Albumin (3.4-5.0) g/dL Globulin (2.3-3.5) g/dL Albumin/Globulin Ratio (1.2-2.2) Amylase (25-115) U/L Lipase (73-393) U/L TSH, Ultra Sensitive (0.358-3.740) uIU/mL Urine Color (YELLOW) Urine Appearance (CLEAR) Urine pH (5.0-8.0) Ur Specific [place] (1.008-1.030) Urine Protein (NEGATIVE) mg/dL Urine Glucose (UA) (NEGATIVE) mg/dL Urine Ketones (NEGATIVE) mg/dL Urine Occult Blood (NEGATIVE) Urine Nitrite (NEGATIVE) Urine Bilirubin (NEGATIVE) Urine Urobilinogen (0.2-1.0) EU/dL Ur Leukocyte Esterase (NEGATIVE) Urine RBC (0-5) Urine WBC (0-5) Ur Epithelial Cells Amorphous Sediment Urine Bacteria Urine Mucus Urine Opiates Screen (NEGATIVE) Ur Oxycodone Screen (NEGATIVE) Urine Methadone Screen (NEGATIVE) Ur Propoxyphene Screen (NEGATIVE) Ur Barbiturates Screen (NEGATIVE) Ur Tricyclics Screen (NEGATIVE) Ur Phencyclidine Scrn (NEGATIVE) Ur Amphetamine Screen (NEGATIVE) U Methamphetamines Scrn (NEGATIVE) Urine MDMA Screen (NEGATIVE) U Benzodiazepines Scrn (NEGATIVE) U Cocaine Metab Screen (NEGATIVE) U Marijuana (THC) Screen (NEGATIVE) 06/27/19 06/27/19 06/27/19 Range/Units 20:10 20:11 23:10 WBC (4.5-11.0) K/uL RBC (4.30-5.90) M/uL Hgb (12.0-15.0) g/dL Hct (40.0-54.0) % MCV (80-98) fL MCH (27-31) pg MCHC (32-36) % Plt Count (150-400) K/uL Neut % (Auto) (36-66) % Lymph % (Auto) (24-44) % [place] % (Auto) (2-6) % Eos % (Auto) (2-4) % Baso % (Auto) (0-1) % VBG pH (7.350-7.450) Sodium (140-148) mmol/L Potassium (3.6-5.2) mmol/L Chloride (100-108) mmol/L Carbon Dioxide (21-32) mmol/L Anion Gap (5.0-14.0) mmol/L BUN (7-18) mg/dL Creatinine (0.8-1.3) mg/dL Est Cr Clr Drug Dosing mL/min Estimated GFR (MDRD) (>60) Glucose (74-106) mg/dL Hemoglobin A1c 10.0 H (4.5-6.2) % Lactic Acid (0.4-2.0) mmol/L Calcium (8.5-10.1) mg/dL Total Bilirubin (0.2-1.0) mg/dL AST (15-37) U/L ALT (12-78) U/L Alkaline Phosphatase (46-116) U/L Troponin I (0.000-0.056) ng/mL C-Reactive Protein (0.0-0.3) mg/dL Total Protein (6.4-8.2) g/dL Albumin (3.4-5.0) g/dL Globulin (2.3-3.5) g/dL Albumin/Globulin Ratio (1.2-2.2) Amylase 64 (25-115) U/L Lipase 210 (73-393) U/L TSH, Ultra Sensitive (0.358-3.740) uIU/mL Urine Color (YELLOW) Urine Appearance (CLEAR) Urine pH (5.0-8.0) Ur Specific [place] (1.008-1.030) Urine Protein (NEGATIVE) mg/dL Urine Glucose (UA) (NEGATIVE) mg/dL Urine Ketones (NEGATIVE) mg/dL Urine Occult Blood (NEGATIVE) Urine Nitrite (NEGATIVE) Urine Bilirubin (NEGATIVE) Urine Urobilinogen (0.2-1.0) EU/dL Ur Leukocyte Esterase (NEGATIVE) Urine RBC (0-5) Urine WBC (0-5) Ur Epithelial Cells Amorphous Sediment Urine Bacteria Urine Mucus Urine Opiates Screen (NEGATIVE) Ur Oxycodone Screen (NEGATIVE) Urine Methadone Screen (NEGATIVE) Ur Propoxyphene Screen (NEGATIVE) Ur Barbiturates Screen (NEGATIVE) Ur Tricyclics Screen (NEGATIVE) Ur Phencyclidine Scrn (NEGATIVE) Ur Amphetamine Screen (NEGATIVE) U Methamphetamines Scrn (NEGATIVE) Urine MDMA Screen (NEGATIVE) U Benzodiazepines Scrn (NEGATIVE) U Cocaine Metab Screen (NEGATIVE) U Marijuana (THC) Screen (NEGATIVE) 06/28/19 06/28/19 06/28/19 Range/Units 01:12 01:20 04:10 WBC 11.4 H (4.5-11.0) K/uL RBC 4.59 (4.30-5.90) M/uL Hgb 14.1 (12.0-15.0) g/dL Hct 43.1 (40.0-54.0) % MCV 94 (80-98) fL MCH 31 (27-31) pg MCHC 33 (32-36) % Plt Count 262 (150-400) K/uL Neut % (Auto) 61 (36-66) % Lymph % (Auto) 27 (24-44) % [place] % (Auto) 8 H (2-6) % Eos % (Auto) 3 (2-4) % Baso % (Auto) 1 (0-1) % VBG pH (7.350-7.450) Sodium (140-148) mmol/L Potassium (3.6-5.2) mmol/L Chloride (100-108) mmol/L Carbon Dioxide (21-32) mmol/L Anion Gap (5.0-14.0) mmol/L BUN (7-18) mg/dL Creatinine (0.8-1.3) mg/dL Est Cr Clr Drug Dosing mL/min Estimated GFR (MDRD) (>60) Glucose (74-106) mg/dL Hemoglobin A1c (4.5-6.2) % Lactic Acid 1.7 (0.4-2.0) mmol/L Calcium (8.5-10.1) mg/dL Total Bilirubin (0.2-1.0) mg/dL AST (15-37) U/L ALT (12-78) U/L Alkaline Phosphatase (46-116) U/L Troponin I (0.000-0.056) ng/mL C-Reactive Protein (0.0-0.3) mg/dL Total Protein (6.4-8.2) g/dL Albumin (3.4-5.0) g/dL Globulin (2.3-3.5) g/dL Albumin/Globulin Ratio (1.2-2.2) Amylase (25-115) U/L Lipase (73-393) U/L TSH, Ultra Sensitive 2.829 (0.358-3.740) uIU/mL Urine Color (YELLOW) Urine Appearance (CLEAR) Urine pH (5.0-8.0) Ur Specific [place] (1.008-1.030) Urine Protein (NEGATIVE) mg/dL Urine Glucose (UA) (NEGATIVE) mg/dL Urine Ketones (NEGATIVE) mg/dL Urine Occult Blood (NEGATIVE) Urine Nitrite (NEGATIVE) Urine Bilirubin (NEGATIVE) Urine Urobilinogen (0.2-1.0) EU/dL Ur Leukocyte Esterase (NEGATIVE) Urine RBC (0-5) Urine WBC (0-5) Ur Epithelial Cells Amorphous Sediment Urine Bacteria Urine Mucus Urine Opiates Screen (NEGATIVE) Ur Oxycodone Screen (NEGATIVE) Urine Methadone Screen (NEGATIVE) Ur Propoxyphene Screen (NEGATIVE) Ur Barbiturates Screen (NEGATIVE) Ur Tricyclics Screen (NEGATIVE) Ur Phencyclidine Scrn (NEGATIVE) Ur Amphetamine Screen (NEGATIVE) U Methamphetamines Scrn (NEGATIVE) Urine MDMA Screen (NEGATIVE) U Benzodiazepines Scrn (NEGATIVE) U Cocaine Metab Screen (NEGATIVE) U Marijuana (THC) Screen (NEGATIVE) [facility] Results - Last 24 hrs: Microbiology 06/27/19 21:29 Influenza Type A Antigen Screen - Final Nasal, Unspecified NEGATIVE INFLUENZA A VIRUS AG REFERENCE RANGE: NEGATIVE Influenza Type B Antigen Screen - Final NEGATIVE INFLUENZA B VIRUS AG REFERENCE RANGE: NEGATIVE Med Orders - Current: Current Medications Acetaminophen (Tylenol) 650 mg PO Q4H PRN PRN Reason: Pain (Mild 1-3)/fever Albuterol (Proventil Neb Soln) 2.5 mg NEB Q4H PRN PRN Reason: Shortness Of Breath/wheezing Amitriptyline HCl (Elavil) 25 mg PO BEDTIME [facility] Last Admin: 06/27/19 23:29 Dose: 25 mg Amoxicillin (Amoxil) 500 mg PO TID [facility] Stop: 07/04/19 14:01 Last Admin: 06/28/19 08:31 Dose: 500 mg Clonidine HCl (Catapres) 0.3 mg PO BEDTIME [facility] Last Admin: 06/27/19 23:16 Dose: 0.3 mg Docusate Sodium (Colace) 100 mg PO BID PRN PRN Reason: Constipation Enoxaparin Sodium (Lovenox) 40 mg SUBCUT DAILY [facility] Last Admin: 06/28/19 08:31 Dose: 40 mg Sodium Chloride (Normal Saline) 1,000 mls @ 125 mls/hr IV ASDIRECTED [facility] Last Admin: 06/28/19 06:12 Dose: 125 mls/hr Insulin Glargine (Lantus Solostar) 80 units SUBCUT BID [facility] Last Admin: 06/28/19 08:30 Dose: 80 units Insulin Human Lispro (Humalog) 0 unit SUBCUT QIDACANDBED [facility]; Protocol Last Admin: 06/28/19 07:56 Dose: 9 unit Insulin Human Lispro (Humalog) 30 unit SUBCUT TIDAC [facility] Last Admin: 06/28/19 07:57 Dose: 30 unit Lorazepam (Ativan) 1 mg IV Q6H PRN PRN Reason: Nausea/Vomiting Nicotine Polacrilex (Nicorelief) 2 mg CHEW Q2H PRN PRN Reason: Agitation Ondansetron HCl (Zofran Odt) 4 mg PO Q6H PRN PRN Reason: Nausea able to take PO Last Admin: 06/27/19 23:15 Dose: 4 mg Oxycodone/Acetaminophen (Percocet 325-5 Mg) 2 tab PO Q4H PRN PRN Reason: Pain (moderate 4-6) Last Admin: 06/28/19 07:30 Dose: 2 tab Pantoprazole Sodium (Protonix Iv) 40 mg IVPUSH Q12H [facility] Last Admin: 06/28/19 09:57 Dose: 40 mg Pregabalin (Lyrica) 150 mg PO BEDTIME [facility] Last Admin: 06/27/19 23:29 Dose: 150 mg Venlafaxine HCl (Effexor Xr) 300 mg PO DAILY [facility] Last Admin: 06/28/19 08:31 Dose: 300 mg Zolpidem Tartrate (Ambien) 5 mg PO BEDTIME PRN PRN Reason: Sleep Last Admin: 06/27/19 23:16 Dose: 5 mg Discontinued Medications Hydromorphone HCl (Dilaudid) 0.5 mg IVPUSH ONETIME ONE Stop: 06/27/19 18:23 Last Admin: 06/27/19 18:55 Dose: 0.5 mg Hydromorphone HCl (Dilaudid) 0.5 mg IVPUSH ONETIME ONE Stop: 06/27/19 20:14 Last Admin: 06/27/19 20:25 Dose: 0.5 mg Hydromorphone HCl (Dilaudid) 1 mg IVPUSH ONETIME ONE Stop: 06/27/19 21:48 Last Admin: 06/27/19 22:07 Dose: 1 mg Sodium Chloride (Normal Saline) 1,000 mls @ 999 mls/hr IV ASDIRECTED [facility] Last Admin: 06/27/19 18:56 Dose: 999 mls/hr Sodium Chloride (Normal Saline) 1,000 mls @ 999 mls/hr IV ASDIRECTED [facility] Last Admin: 06/27/19 19:40 Dose: 999 mls/hr Sodium Chloride (Normal Saline) 1,000 mls @ 999 mls/hr IV ASDIRECTED [facility] Last Admin: 06/27/19 21:27 Dose: 999 mls/hr Sodium Chloride (Normal Saline) 80 mls @ 3 mls/sec IV ASDIRECTED [facility] Last Admin: 06/27/19 20:41 Dose: 3 mls/sec Sodium Chloride (Normal Saline) 1,000 mls @ 500 mls/hr IV ASDIRECTED [facility] Insulin Human Regular (Humulin R) 10 unit SUBCUT ONETIME ONE Stop: 06/27/19 19:01 Last Admin: 06/27/19 19:09 Dose: 10 units Insulin Human Regular (Humulin R) 10 unit SUBCUT ONETIME ONE Stop: 06/27/19 20:54 Last Admin: 06/27/19 21:22 Dose: 10 units Iopamidol (Isovue-300 (61%)) 150 ml IV . DIRECTED [facility] Last Admin: 06/27/19 20:41 Dose: 150 ml Ondansetron HCl (Zofran) 4 mg IVPUSH ONETIME ONE Stop: 06/27/19 18:22 Last Admin: 06/27/19 18:56 Dose: 4 mg Sodium Chloride (Saline Flush) 10 ml FLUSH ASDIRECTED PRN PRN Reason: Keep Vein Open Last Admin: 06/27/19 20:41 Dose: 10 ml - Exam General: Reports: Alert, Oriented, Cooperative, Mild Distress Lungs: Reports: Clear to Auscultation, Normal Respiratory Effort Cardiovascular: Reports: Regular Rate, Regular Rhythm, No Murmurs GI/Abdominal Exam: Soft, Non-Tender, No Organomegaly, No Distention Extremities: Non-Tender, No Pedal Edema
== END 2019-06-28 11:50 | disposition home or self-care (01) ==
LOC: JP.ED 17:40 → JP.MS 21:51
PROVIDERS: ADMIT Hospitalist; ATTEND Hospitalist
DX: K29.00 Acute gastritis without bleeding (principal); E86.0 Dehydration; E10.65 Type 1 diabetes mellitus with hyperglycemia; I10 Essential (primary) hypertension; J45.909 Unspecified asthma, uncomplicated; F41.9 Anxiety disorder, unspecified; F32.9 Major depressive disorder, single episode, unspecified; F17.210 Nicotine dependence, cigarettes, uncomplicated; E66.9 Obesity, unspecified; Z68.42 Body mass index [BMI] 45.0-49.9, adult; Z88.1 Allergy status to other antibiotic agents; Z79.4 Long term (current) use of insulin; Z79.899 Other long term (current) drug therapy
CPT/HCPCS: 36415; 71045; 74177; 80053; 80305-QW; 81001; 82150; 82800; 82962; 83036; 83605; 83690; 84443; 84484; 85025; 86140; 87040; 87804; 87804-59; 93005; 93010; 96361; 96372; 96374; 96375; 96376; 99285-25; A9270-GY; C9113; G0378; J1170; J1650; J1815; J1815-GY; J2405; J7030; J7050; Q9967

== ENCOUNTER 2019-07-18 09:58 | Emergency (ER) | payer MEDICAID, OTHER ==
--- NOTE | 2019-07-18 10:14 | EDM.PDOC ---
ED HPI GENERAL MEDICAL PROBLEM - General Chief Complaint: ENT Problem Stated Complaint: TOOTH CRACKED IN HALF Time Seen by Provider: 07/18/19 10:14 - History of Present Illness INITIAL COMMENTS - FREE TEXT/NARRATIVE: 49 yo male with IDDM presents with a complaint of cracked tooth. He told us he has an appt for next Monday. We called to verify this and found he had no- showed for an appt on 07/09/19 and has no appt for next Monday. We got him an appt for right after he leaves the ER. Onset: Sudden Duration: Day(s):, Constant Location: Reports: Face (R posterior mandible) Quality: Reports: Ache Severity: Mild Improves with: Reports: Medication Worsens with: Reports: Eating Context: Reports: Other (tooth broke off a portion.) Associated Symptoms: Reports: No Other Symptoms Treatments ADMINISTRATION SPECIALIST: Reports: Other (see below) (none) - Related Data Allergies Allergy/AdvReac Type Severity Reaction Status Date / Time ciprofloxacin HCl Allergy Hives Verified 07/18/19 10:11 [From Cipro] Home Meds: Home Meds Insulin Aspart [NovoLOG] 30 units SQ TIDAC 11/17/13 [History] Insulin Detemir [Levemir] 80 units SQ BID 11/17/13 [History] Amitriptyline [Elavil] 25 mg PO BEDTIME 04/29/19 [History] Venlafaxine [Effexor XR] 300 mg PO DAILY 04/29/19 [History] cloNIDine HCl [Catapres] 0.3 mg PO BEDTIME 04/29/19 [History] Pregabalin [Lyrica] 150 mg PO DAILY 05/31/19 [History] Amoxicillin 500 mg PO TID 06/27/19 [History] Acetaminophen/oxyCODONE [Percocet 325-5 MG] 1 tab PO Q4H PRN #8 tablet 06/28/19 [Rx] Pantoprazole Sodium [Protonix] 40 mg PO BID #60 tablet. 06/28/19 [Rx] Past Medical History HEENT History: Reports: Impaired Vision, Other (See Below) Other HEENT History: dental caries Cardiovascular History: Reports: Hypertension Respiratory History: Reports: Asthma Other Genitourinary History: kidney disease Musculoskeletal History: Reports: Fracture Psychiatric History: Reports: Anxiety, Depression Endocrine/Metabolic History: Reports: Diabetes, Type I, Obesity/BMI 30+ - Infectious Disease History Infectious Disease History: Reports: Chicken Pox, Shingles - Past Surgical History Musculoskeletal Surgical History: Reports: Other (See Below) Other Musculoskeletal Surgeries/Procedures:: ankle surgery Social & Family History - Family History Family Medical History: Noncontributory - Caffeine Use Caffeine Use: Reports: Coffee, Soda Other Caffeine Use: 3 cups of coffee per day - Living Situation & Occupation Living situation: Reports: with Significant Other [place] ED ROS ENT - Review of Systems Review Of Systems: See Below Constitutional: Reports: No Symptoms HEENT: Reports: Dental Pain (broken tooth) ED EXAM, ENT - Physical Exam Exam: See Below Exam Limited By: No Limitations General Appearance: Alert, WD/WN, No Apparent Distress Mouth/Throat: Other (post/medial corner of a R mandibular molar is broken off. ) Head: Atraumatic, Normocephalic Neck: Normal Inspection Departure - Departure Time of Disposition: 10:14 Disposition: Home, Self-Care 01 Condition: Good Clinical Impression: Broken tooth - Discharge Information *PRESCRIPTION DRUG MONITORING PROGRAM REVIEWED*: No *COPY OF PRESCRIPTION DRUG MONITORING REPORT IN PATIENT JAMISON: No Referrals: PCP,None [Primary Care Provider] - Additional Instructions: Go directly to the dentist's office.
== END 2019-07-18 10:16 | disposition home or self-care (01) ==
LOC: JP.ED 09:58
CPT/HCPCS: 99282

== ENCOUNTER 2019-08-02 14:34 | Emergency (ER) | payer MEDICAID, OTHER ==
[2019-08-02 14:49] VITALS: BP 127/85; PULSE 127
--- NOTE | 2019-08-02 15:23 | EDM.PDOC ---
ED HPI GENERAL MEDICAL PROBLEM - General Chief Complaint: ENT Problem Stated Complaint: EAR ACHE AND TOOTH PAIN Time Seen by Provider: 08/02/19 15:20 Source of Information: Reports: Patient History Limitations: Reports: No Limitations - History of Present Illness INITIAL COMMENTS - FREE TEXT/NARRATIVE: pt is having pain in the rt sided molar. He has been seen by oral surgery and is scheduled for a extraction in September. He was seen yesterday. He is here for pain meds and antibiotic. Onset: Gradual, Other (pt has been having the same problem for a # of monthes. ) Duration: Hour(s): Location: Reports: Face Associated Symptoms: Reports: No Other Symptoms - Related Data Allergies Allergy/AdvReac Type Severity Reaction Status Date / Time ciprofloxacin HCl Allergy Hives Verified 08/02/19 14:49 [From Cipro] Home Meds: Home Meds Insulin Aspart [NovoLOG] 30 units SQ TIDAC 11/17/13 [History] Insulin Detemir [Levemir] 80 units SQ BID 11/17/13 [History] Venlafaxine [Effexor XR] 300 mg PO DAILY 04/29/19 [History] Pregabalin [Lyrica] 150 mg PO DAILY 05/31/19 [History] Pantoprazole Sodium [Protonix] 40 mg PO BID #60 tablet.dr 06/28/19 [Rx] Albuterol Sulfate [Proair Hfa] 2 puff INH DAILY 08/02/19 [History] QUEtiapine [SEROquel] 100 mg PO BEDTIME 08/02/19 [History] cloNIDine HCl [Catapres] 0.2 mg PO BEDTIME 08/02/19 [History] Past Medical History HEENT History: Reports: Impaired Vision, Other (See Below) Other HEENT History: dental caries Cardiovascular History: Reports: Hypertension Respiratory History: Reports: Asthma Other Genitourinary History: kidney disease Musculoskeletal History: Reports: Fracture Psychiatric History: Reports: Anxiety, Depression Endocrine/Metabolic History: Reports: Diabetes, Type I, Obesity/BMI 30+ - Infectious Disease History Infectious Disease History: Reports: Chicken Pox, Shingles - Past Surgical History Musculoskeletal Surgical History: Reports: Other (See Below) Other Musculoskeletal Surgeries/Procedures:: ankle surgery Social & Family History - Family History Family Medical History: Noncontributory - Tobacco Use Smoking Status *Q: Current Every Day Smoker Years of Tobacco use: 35 Packs/Tins Daily: 0.5 - Caffeine Use Caffeine Use: Reports: Coffee, Soda, Tea Other Caffeine Use: 3 cups of coffee per day - Recreational Drug Use Recreational Drug Use: No - Living Situation & Occupation Living situation: Reports: with Significant Other (lives in apartment [place], [place].) ED ROS ENT - Review of Systems Review Of Systems: See Below Constitutional: Reports: No Symptoms HEENT: Reports: Other (pt has pain in The rt ear. ) Respiratory: Reports: No Symptoms Cardiovascular: Reports: No Symptoms Endocrine: Reports: No Symptoms GI/Abdominal: Reports: No Symptoms : Reports: No Symptoms Musculoskeletal: Reports: No Symptoms Skin: Reports: No Symptoms Neurological: Reports: No Symptoms ED EXAM, ENT - Physical Exam Exam: See Below Text/Narrative:: pt is having pain in the rt ear and he is having pain in his molars on the rt that he is scheduled to have removed. Exam Limited By: No Limitations General Appearance: Alert, Anxious, Mild Distress Ears: Other (pt has some pus like material in the rt ear canal. This was irrigated some and the drum does look red under the material, ) Nose: Normal Inspection Mouth/Throat: Other ( teeth do not looked abcessed. He is scheduled for an extraction) Head: Atraumatic Neck: Normal Inspection Respiratory/Chest: No Respiratory Distress Course - Vital Signs Last Recorded V/S: Last Vital Signs Temp 35.9 C L 08/02/19 14:49 Pulse 127 H 08/02/19 14:49 Resp 20 08/02/19 14:49 BP 127/85 08/02/19 14:49 Pulse Ox 97 08/02/19 14:49 - Orders/Labs/Meds Meds: Medications Discontinued Medications Generic Name Dose Route Start Last Admin Trade Name Freq PRN Reason Stop Dose Admin Hydrocodone Bitart/Acetaminophen 1 tab 08/02/19 15:38 Guffey 325-5 Mg PO 08/02/19 15:39 ONETIME ONE - Re-Assessments/Exams Free Text/Narrative Re-Assessment/Exam: 08/02/19 15:48 pt was given norco 5/325 po while he was here. Departure - Departure Time of Disposition: 15:39 Disposition: Home, Self-Care 01 Condition: Fair Clinical Impression: Otitis media, right, Tooth pain - Discharge Information Referrals: PCP,None [Primary Care Provider] - Forms: ED Department Discharge Care Plan Goals: amoxicillin 500mg tid, tramodol 50 mg q6h prn for severe pain, cortcosporin ear drops tid follow dental problem with the dental clinic, pt is scheduled for dental procedure with oral surgery in September. Sepsis Event Note - Evaluation Sepsis Screening Result: No Definite Risk - Focused Exam Vital Signs: Vital Signs Temp Pulse Resp BP Pulse Ox 08/02/19 14:49 35.9 C L 127 H 20 127/85 97 Date Exam was Performed: 08/02/19 Time Exam was Performed: 15:45
[2019-08-02] MEDS ORDERED: Acetaminophen/HYDROcodone 325-5 MG Tab PO ONE (15:38)
== END 2019-08-02 16:33 | disposition home or self-care (01) ==
LOC: JP.ED 14:34
DX: H66.91 Otitis media, unspecified, right ear (principal); K08.89 Other specified disorders of teeth and supporting structures; I10 Essential (primary) hypertension; F17.210 Nicotine dependence, cigarettes, uncomplicated; E10.9 Type 1 diabetes mellitus without complications; Z88.1 Allergy status to other antibiotic agents; Z79.4 Long term (current) use of insulin
CPT/HCPCS: 99282; A9270; 99283

== ENCOUNTER 2023-07-30 16:25 | Emergency (ER) | payer MEDICAID, OTHER ==
[2023-07-30 17:09] VITALS: BP 125/91; PULSE 106
[2023-07-30] MEDS: Ketorolac 30 MG/ML SDV IM ONE (17:43)
== END 2023-07-30 17:59 | disposition home or self-care (01) ==
LOC: JP.ED 16:25
DX: K08.89 Other specified disorders of teeth and supporting structures (principal); I10 Essential (primary) hypertension; J45.909 Unspecified asthma, uncomplicated; E66.9 Obesity, unspecified; E10.9 Type 1 diabetes mellitus without complications; Z88.8 Allergy status to other drugs, medicaments and biological substances; Z79.4 Long term (current) use of insulin; Z79.899 Other long term (current) drug therapy; Z68.1 Body mass index [BMI] 19.9 or less, adult
CPT/HCPCS: 96372; 99282; J1885

== ENCOUNTER 2024-01-12 20:32 | Emergency (ER) | payer MEDICAID ==
[2024-01-12 21:55] VITALS: BP 134/86; PULSE 118
[2024-01-12 22:29] LABS: BASOPHILS ABSOLUTE AUTO 0.07 K/uL (0.00-0.10); BASOPHILS PERCENT AUTO 0.6 % (0.1-1.3); EOSINOPHILS ABSOLUTE AUTO 0.57 K/uL (0.00-0.40); HEMATOCRIT 38.7 % (38.4-49.7); HEMOGLOBIN 13.5 g/dL (12.9-16.9); IMMATURE GRAN ABSOLUTE AUTO 0.06 K/uL (0.00-0.23); IMMATURE GRAN PERCENT AUTO 0.5 % (0.0-0.7); LYMPHOCYTES ABSOLUTE AUTO 3.05 K/uL (0.8-3.3); LYMPHOCYTES PERCENT AUTO 26.8 % (11.4-47.7); MEAN CORPUSCULAR HEMOGLOBIN 31.3 pg (31.6-35.5); MEAN CORPUSCULAR HGB CONC 34.9 g/dL (31.6-35.5); MEAN CORPUSCULAR VOLUME 89.6 fL (81.4-99.0); MONOCYTES ABSOLUTE AUTO 0.92 K/uL (0.20-0.90); MONOCYTES PERCENT AUTO 8.1 % (3.3-12.6); NEUTROPHILS ABSOLUTE AUTO 6.73 K/uL (1.0-7.6); PLATELET COUNT,PLT 231 K/uL (130-375); RED BLOOD CELL COUNT 4.32 M/uL (4.14-5.76); WHITE BLOOD CELL COUNT,WBC 11.4 K/uL (3.2-11.0)
[2024-01-12 22:52] LABS: LACTIC ACID 3.2 mmol/L (0.4-2.0)
[2024-01-12 22:56] LABS: A/G RATIO 0.9 (1.2-2.2); ALANINE AMINOTRANSFERASE,ALT 18 U/L (12-78); ALKALINE PHOSPHATASE 142 U/L (46-116); ASPARTATE AMNIOTRANSFERASE,AST 8 U/L (15-37); BILIRUBIN TOTAL 0.3 mg/dL (0.2-1.0); BLOOD UREA NITROGEN,BUN 22 mg/dL (7-18); CALCIUM 8.1 mg/dL (8.5-10.1); CARBON DIOXIDE,CO2 22 mmol/L (21-32); CHLORIDE,CL 104 mmol/L (100-108); CREATININE 1.1 mg/dL (0.8-1.3); EST CRCL DRUG DOSING (CG) 71.69 mL/min; ESTIMATED GFR 81 mL/min (>60); POTASSIUM,K 4.3 mmol/L (3.6-5.2); PROTEIN TOTAL,TP 6.3 g/dL (6.4-8.2); SODIUM,NA 138 mmol/L (140-148)
[2024-01-12 22:57] LABS: ANION GAP 16.3 mmol/L (5.0-14.0)
[2024-01-12 22:58] LABS: C-REACTIVE PROTEIN < 0.50 mg/dL (<0.50); GLUCOSE RANDOM 432 mg/dL (74-106)
[2024-01-12] MEDS: Sodium Chloride 0.9% 1,000 ML IV SCH (23:11)
[2024-01-13] MEDS ORDERED: 50% Dextrose in Water 50 ML Syringe IVPUSH PRN (00:12)
[2024-01-13] MEDS ORDERED: Glucagon,Human Recombinant 1 MG Vial IM PRN (00:12)
[2024-01-13] MEDS: droPERidol 5 MG/2 ML SDV IVPUSH ONE (00:15)
[2024-01-13] MEDS: Insulin Lispro 100 Unit/ML 3 ML KwikPen SUBCUT ONE (00:25)
[2024-01-13] MEDS: droPERidol 5 MG/2 ML SDV IM ONE (00:27)
== END 2024-01-13 00:46 | disposition left against medical advice (07) ==
LOC: JP.ED 20:32
DX: E10.65 Type 1 diabetes mellitus with hyperglycemia (principal); I10 Essential (primary) hypertension; E66.9 Obesity, unspecified; F17.210 Nicotine dependence, cigarettes, uncomplicated; Z88.8 Allergy status to other drugs, medicaments and biological substances; Z79.82 Long term (current) use of aspirin; Z79.84 Long term (current) use of oral hypoglycemic drugs; Z68.33 Body mass index [BMI] 33.0-33.9, adult
CPT/HCPCS: 36415; 80053; 83605; 83690; 85025; 86140; 96360; 96372; 99284; J1790; J1815; J7030

== ENCOUNTER 2024-05-13 17:03 | Emergency (ER) | payer MEDICAID ==
[2024-05-13 18:54] LABS: BASOPHILS ABSOLUTE AUTO 0.08 K/uL (0.00-0.10); BASOPHILS PERCENT AUTO 0.6 % (0.1-1.3); EOSINOPHILS ABSOLUTE AUTO 0.67 K/uL (0.00-0.40); EOSINOPHILS PERCENT AUTO 5.2 % (0.0-5.4); HEMATOCRIT 38.3 % (38.4-49.7); HEMOGLOBIN 12.9 g/dL (12.9-16.9); IMMATURE GRAN ABSOLUTE AUTO 0.23 K/uL (0.00-0.23); IMMATURE GRAN PERCENT AUTO 1.8 % (0.0-0.7); LYMPHOCYTES ABSOLUTE AUTO 2.21 K/uL (0.8-3.3); MEAN CORPUSCULAR HEMOGLOBIN 30.6 pg (31.6-35.5); MEAN CORPUSCULAR HGB CONC 33.7 g/dL (31.6-35.5); MEAN CORPUSCULAR VOLUME 90.8 fL (81.4-99.0); MONOCYTES ABSOLUTE AUTO 1.16 K/uL (0.20-0.90); MONOCYTES PERCENT AUTO 8.9 % (3.3-12.6); NEUTROPHILS ABSOLUTE AUTO 8.62 K/uL (1.0-7.6); NEUTROPHILS PERCENT AUTO 66.5 % (40.0-78.1); PLATELET COUNT,PLT 409 K/uL (130-375); RED BLOOD CELL COUNT 4.22 M/uL (4.14-5.76)
[2024-05-13 19:11] LABS: C-REACTIVE PROTEIN 7.66 mg/dL (<0.50); CALCIUM 9.9 mg/dL (8.5-10.1); CREATININE 1.1 mg/dL (0.8-1.3); EST CRCL DRUG DOSING (CG) 70.89 mL/min; POTASSIUM,K 5.5 mmol/L (3.6-5.2)
[2024-05-13 19:12] LABS: ANION GAP 11.5 mmol/L (5.0-14.0)
[2024-05-13 19:19] LABS: LACTIC ACID 1.9 mmol/L (0.4-2.0)
[2024-05-13] MEDS ORDERED: Glucagon,Human Recombinant 1 MG Vial IM PRN (19:24)
[2024-05-13] MEDS ORDERED: 50% Dextrose in Water 50 ML Syringe IVPUSH PRN (19:24)
[2024-05-13] MEDS: Insulin Lispro 100 Units/ML 3 ML Vial SUBCUT ONE (20:43)
[2024-05-13] MEDS: Doxycycline 100 MG Cap PO ONE (20:45)
[2024-05-13] MEDS: Bacitracin Oint 1 GM U/D Packet TOP ONE (20:45)
[2024-05-13 21:25] VITALS: BP 122/69; PULSE 111
== END 2024-05-13 21:39 | disposition left against medical advice (07) ==
LOC: JP.ED 17:03
DX: L03.115 Cellulitis of right lower limb (principal); E10.65 Type 1 diabetes mellitus with hyperglycemia; E87.5 Hyperkalemia; I10 Essential (primary) hypertension; J45.909 Unspecified asthma, uncomplicated; E66.9 Obesity, unspecified; F17.200 Nicotine dependence, unspecified, uncomplicated; Z86.16 Personal history of COVID-19; Z88.0 Allergy status to penicillin; Z88.1 Allergy status to other antibiotic agents; Z88.2 Allergy status to sulfonamides; Z88.5 Allergy status to narcotic agent; Z88.8 Allergy status to other drugs, medicaments and biological substances; Z79.4 Long term (current) use of insulin; Z79.82 Long term (current) use of aspirin; Z79.899 Other long term (current) drug therapy; Z68.31 Body mass index [BMI] 31.0-31.9, adult
CPT/HCPCS: 36415; 80048; 83605; 85025; 86140; 87040; 99283; 99284; A9270; J1815

== ENCOUNTER 2024-07-08 01:26 | Inpatient (IN) | payer MEDICAID ==
[2024-07-08 01:47] LABS: BASOPHILS ABSOLUTE AUTO 0.06 K/uL (0.00-0.10); BASOPHILS PERCENT AUTO 0.3 % (0.1-1.3); EOSINOPHILS ABSOLUTE AUTO 0.35 K/uL (0.00-0.40); EOSINOPHILS PERCENT AUTO 1.6 % (0.0-5.4); HEMATOCRIT 31.6 % (38.4-49.7); HEMOGLOBIN 10.5 g/dL (12.9-16.9); IMMATURE GRAN ABSOLUTE AUTO 0.74 K/uL (0.00-0.23); IMMATURE GRAN PERCENT AUTO 3.5 % (0.0-0.7); LYMPHOCYTES ABSOLUTE AUTO 2.21 K/uL (0.8-3.3); LYMPHOCYTES PERCENT AUTO 10.4 % (11.4-47.7); MEAN CORPUSCULAR HEMOGLOBIN 28.6 pg (31.6-35.5); MEAN CORPUSCULAR HGB CONC 33.2 g/dL (31.6-35.5); MEAN CORPUSCULAR VOLUME 86.1 fL (81.4-99.0); MONOCYTES ABSOLUTE AUTO 1.35 K/uL (0.20-0.90); MONOCYTES PERCENT AUTO 6.4 % (3.3-12.6); NEUTROPHILS ABSOLUTE AUTO 16.54 K/uL (1.0-7.6); NEUTROPHILS PERCENT AUTO 77.8 % (40.0-78.1); PLATELET COUNT,PLT 364 K/uL (130-375); RED BLOOD CELL COUNT 3.67 M/uL (4.14-5.76); WHITE BLOOD CELL COUNT,WBC 21.3 K/uL (3.2-11.0)
[2024-07-08 02:06] LABS: BLOOD UREA NITROGEN,BUN 27 mg/dL (7-18); CALCIUM 8.6 mg/dL (8.5-10.1); CARBON DIOXIDE,CO2 26 mmol/L (21-32); CHLORIDE,CL 94 mmol/L (100-108); CREATININE 0.8 mg/dL (0.8-1.3); EST CRCL DRUG DOSING (CG) 97.47 mL/min; ESTIMATED GFR 106 mL/min (>60); GLUCOSE RANDOM 205 mg/dL (74-106); POTASSIUM,K 4.4 mmol/L (3.6-5.2); SODIUM,NA 130 mmol/L (140-148)
[2024-07-08 02:07] LABS: ANION GAP 14.4 mmol/L (5.0-14.0); TROPONIN I HIGH SENSITIVITY < 4.0 pg/mL (<=60.3)
[2024-07-08] MEDS: Ondansetron 4 MG/2 ML SDV IVPUSH ONE (02:08)
[2024-07-08] MEDS: Sodium Chloride 0.9% 1,000 ML IV ONE (02:39)
[2024-07-08] MEDS: cefTRIAXone 2 GM in Sodium Chloride 0.9% 50 ML IV ONE (02:49)
[2024-07-08] MEDS ORDERED: Naloxone 0.4 MG/ML SDV IVPUSH PRN (03:36)
[2024-07-08] MEDS: Sodium Chloride 0.9% 80 ML IV SCH ×2 (03:43→04:18)
[2024-07-08] MEDS: Sodium Chloride 0.9% 10 ML Syringe FLUSH ONE ×2 (03:43→04:18)
[2024-07-08] MEDS: Iopamidol 755 Mg/ML 100 ML Bottle IV SCH (03:43)
[2024-07-08] MEDS: metroNIDAZOLE/Normal Saline 500 MG in Premix Bag 1 BAG IV ONE (04:00)
[2024-07-08] MEDS: HYDROmorphone 1 MG/ML Syringe IVPUSH ONE ×2 (04:05→08:55)
[2024-07-08] MEDS: Iopamidol 612 MG/ML 100 ML Bottle IV SCH (04:17)
[2024-07-08 04:20] LABS: APPEARANCE,URINE CLEAR (CLEAR); BILIRUBIN,URINE NEGATIVE (NEGATIVE); COLOR,URINE YELLOW (YELLOW); GLUCOSE,URINE 100 mg/dL (NEGATIVE); KETONES,URINE NEGATIVE (NEGATIVE); LEUKOCYTE ESTERASE,URINE NEGATIVE (NEGATIVE); NITRITE,URINE NEGATIVE (NEGATIVE); OCCULT BLOOD,URINE NEGATIVE (NEGATIVE); PROTEIN,URINE TRACE mg/dL (NEGATIVE); UROBILINOGEN,URINE 0.2 EU/dL (0.2-1.0)
[2024-07-08 04:52] LABS: AMORPHOUS SEDIMENT,URINE NOT SEEN; BACTERIA,URINE FEW; EPITHELIAL CELLS,URINE RARE; MUCUS,URINE NOT SEEN; RBC,URINE 0-5 (0-5); WBC,URINE 0-5 (0-5)
[2024-07-08] MEDS: VANCOmycin 1.5 GM in Sodium Chloride 0.9% 250 ML IV ONE (05:13)
[2024-07-08] MEDS: HYDROmorphone 0.5 MG/0.5 ML Syringe IVPUSH ONE (06:30)
[2024-07-08] MEDS ORDERED: Acetaminophen 325 MG Tab PO PRN (10:54)
[2024-07-08] MEDS ORDERED: Ondansetron 4 MG/2 ML SDV IV PRN (10:54)
[2024-07-08] MEDS ORDERED: Ondansetron 4 MG Tab.DIS PO PRN (10:54)
[2024-07-08] MEDS ORDERED: Sennosides/Docusate Sodium 50-8.6 MG Tab PO PRN (10:54)
[2024-07-08] MEDS: HYDROmorphone 1 MG/ML Syringe IVPUSH PRN (11:06)
[2024-07-08] MEDS ORDERED: Glucagon,Human Recombinant 1 MG Vial IM PRN (12:06)
[2024-07-08] MEDS ORDERED: 50% Dextrose in Water 50 ML Syringe IVPUSH PRN (12:06)
[2024-07-08] MEDS ORDERED: Magnesium Hydroxide 400 MG/5 ML Susp 30 ML Cup PO PRN (12:06)
[2024-07-08] MEDS: Sodium Chloride 0.9% 1,000 ML IV SCH (12:19)
[2024-07-08] MEDS: Lactobacillus Rhamnosus GG (Probiotic) Cap PO SCH (13:14)
[2024-07-08] MEDS: Doxycycline 100 MG in Sodium Chloride 0.9% 100 ML IV SCH (13:14)
[2024-07-08] MEDS: Insulin Lispro 100 Unit/ML 3 ML KwikPen SUBCUT SCH (13:15)
[2024-07-08] MEDS: Acetaminophen/HYDROcodone 325-5 MG Tab PO PRN (13:24)
[2024-07-08] MEDS: cefTRIAXone 2 GM in Sodium Chloride 0.9% 50 ML IV SCH (14:27)
[2024-07-08] MEDS: VANCOmycin 1.5 GM in Sodium Chloride 0.9% 250 ML IV SCH (16:02)
[2024-07-08] MEDS: Melatonin 3 MG Tab PO PRN (21:33)
[2024-07-08] MEDS: risperiDONE 1 MG Tab PO SCH (21:37)
[2024-07-08] MEDS: Insulin Glargine,Human Rec. Analog 100 Units/ML 3 ML Pen SUBCUT SCH (22:12)
[2024-07-09 06:03] LABS: HEMATOCRIT 29.3 % (38.4-49.7); HEMOGLOBIN 9.8 g/dL (12.9-16.9); MEAN CORPUSCULAR HEMOGLOBIN 28.7 pg (31.6-35.5); MEAN CORPUSCULAR HGB CONC 33.4 g/dL (31.6-35.5); MEAN CORPUSCULAR VOLUME 85.7 fL (81.4-99.0); RED BLOOD CELL COUNT 3.42 M/uL (4.14-5.76); WHITE BLOOD CELL COUNT,WBC 17.2 K/uL (3.2-11.0)
[2024-07-09 06:29] LABS: C-REACTIVE PROTEIN 20.74 mg/dL (<0.50); CALCIUM 8.6 mg/dL (8.5-10.1); CREATININE 0.8 mg/dL (0.8-1.3); EST CRCL DRUG DOSING (CG) 97.47 mL/min; POTASSIUM,K 3.9 mmol/L (3.6-5.2)
[2024-07-09 06:35] LABS: ANION GAP 2.9 mmol/L (5.0-14.0)
[2024-07-09] MEDS ORDERED: Sodium Chloride 0.9% 80 ML IV SCH (07:45)
[2024-07-09] MEDS: Aspirin 81 MG Tab.EC PO SCH (08:08)
[2024-07-09] MEDS: Iopamidol 612 MG/ML 100 ML Bottle IV PRN (08:09)
[2024-07-09 17:56] VITALS: BP 117/73; PULSE 84
== END 2024-07-09 19:06 | disposition home or self-care (01) | DRG 637 ==
LOC: JP.ED 01:26 → JP.MS 05:22
PROVIDERS: ADMIT Registered Nurse; ATTEND Internal Medicine
DX: E11.69 Type 2 diabetes mellitus with other specified complication (principal); J18.9 Pneumonia, unspecified organism; M86.9 Osteomyelitis, unspecified; R78.81 Bacteremia; T87.81 Dehiscence of amputation stump; Z66 Do not resuscitate; F17.210 Nicotine dependence, cigarettes, uncomplicated; E11.65 Type 2 diabetes mellitus with hyperglycemia; I10 Essential (primary) hypertension; J45.909 Unspecified asthma, uncomplicated; K21.9 Gastro-esophageal reflux disease without esophagitis; F41.9 Anxiety disorder, unspecified; F32.A Depression, unspecified; E66.9 Obesity, unspecified; E78.00 Pure hypercholesterolemia, unspecified; Z88.1 Allergy status to other antibiotic agents; Z88.2 Allergy status to sulfonamides; Z88.8 Allergy status to other drugs, medicaments and biological substances; Z79.82 Long term (current) use of aspirin; Z79.4 Long term (current) use of insulin; Z79.84 Long term (current) use of oral hypoglycemic drugs; Z79.899 Other long term (current) drug therapy; Z87.81 Personal history of (healed) traumatic fracture; Z68.31 Body mass index [BMI] 31.0-31.9, adult; Z86.16 Personal history of COVID-19; Z98.890 Other specified postprocedural states; Z89.511 Acquired absence of right leg below knee; Y83.5 Amputation of limb(s) as the cause of abnormal reaction of the patient, or of later complication, without mention of misadventure at the time of the procedure
CPT/HCPCS: 36415; 71275; 73080-26-RT; 73080-RT; 73701-26-RT; 73701-RT; 74177; 80048; 80202; 81001; 82947; 83605; 84484; 85025; 85027; 85379; 86140; 87040; 87070; 87077; 87186; 87205; 93005; 93010; 96365; 96367; 96375; 99223; 99239; 99284; 99285-25; A9270-GY; J0696; J1171; J1815; J1815-GY; J1836; J2405; J3371; J3490; J7030; J7050; Q9967

== ENCOUNTER 2024-07-29 23:05 | Emergency (ER) | payer MEDICAID ==
[2024-07-30 00:48] LABS: BASOPHILS ABSOLUTE AUTO 0.07 K/uL (0.00-0.10); BASOPHILS PERCENT AUTO 0.5 % (0.1-1.3); EOSINOPHILS ABSOLUTE AUTO 0.64 K/uL (0.00-0.40); EOSINOPHILS PERCENT AUTO 4.5 % (0.0-5.4); HEMATOCRIT 26.3 % (38.4-49.7); HEMOGLOBIN 8.5 g/dL (12.9-16.9); IMMATURE GRAN ABSOLUTE AUTO 0.16 K/uL (0.00-0.23); IMMATURE GRAN PERCENT AUTO 1.1 % (0.0-0.7); LYMPHOCYTES ABSOLUTE AUTO 3.82 K/uL (0.8-3.3); LYMPHOCYTES PERCENT AUTO 26.9 % (11.4-47.7); MEAN CORPUSCULAR HEMOGLOBIN 28.6 pg (31.6-35.5); MEAN CORPUSCULAR HGB CONC 32.3 g/dL (31.6-35.5); MEAN CORPUSCULAR VOLUME 88.6 fL (81.4-99.0); MONOCYTES PERCENT AUTO 7.8 % (3.3-12.6); NEUTROPHILS PERCENT AUTO 59.2 % (40.0-78.1); PLATELET COUNT,PLT 572 K/uL (130-375); RED BLOOD CELL COUNT 2.97 M/uL (4.14-5.76); WHITE BLOOD CELL COUNT,WBC 14.2 K/uL (3.2-11.0)
[2024-07-30 02:10] VITALS: BP 105/71; PULSE 113
[2024-07-30] MEDS: Doxycycline 100 MG Cap PO ONE (02:14)
[2024-07-30] MEDS: LORazepam 1 MG Tab PO ONE ×2 (03:17→05:09)
== END 2024-07-30 10:08 | disposition home or self-care (01) ==
LOC: JP.ED 23:05
DX: M86.9 Osteomyelitis, unspecified (principal); Z02.89 Encounter for other administrative examinations; F17.210 Nicotine dependence, cigarettes, uncomplicated
CPT/HCPCS: 36415; 72170; 80307; 85025; 86140; 87070; 87077; 87205; 99284; A9270

== ENCOUNTER 2025-01-08 21:18 | Emergency (ER) | payer MEDICAID ==
[2025-01-08 21:30] VITALS: BP 101/81; PULSE 118
== END 2025-01-09 00:24 | disposition home or self-care (01) ==
LOC: JP.ED 21:18
DX: L89.152 Pressure ulcer of sacral region, stage 2 (principal); I10 Essential (primary) hypertension; E66.9 Obesity, unspecified; E10.9 Type 1 diabetes mellitus without complications; F17.200 Nicotine dependence, unspecified, uncomplicated; Z88.1 Allergy status to other antibiotic agents; Z88.0 Allergy status to penicillin; Z88.8 Allergy status to other drugs, medicaments and biological substances; Z88.2 Allergy status to sulfonamides; Z79.4 Long term (current) use of insulin; Z79.82 Long term (current) use of aspirin; Z79.84 Long term (current) use of oral hypoglycemic drugs; Z79.899 Other long term (current) drug therapy; Z86.16 Personal history of COVID-19
CPT/HCPCS: 99283